=== PATIENT | female | born 1970 | race Caucasian/White ===

== ENCOUNTER 2016-10-23 06:37 | Inpatient (IN) ==
[2016-10-23] MEDS ORDERED: DUONEB NEB STA (06:39)
[2016-10-23] MEDS ORDERED: SOLU-MEDROL 125 MG IVP STA ×2 (06:39→09:30)
--- NOTE | 2016-10-23 06:42 | ED.PDOC ---
General <AZAEL CHRISTY JR - Last Filed: 10/23/16 10:55> Stated Complaint: Patient reports shortness of breath for 3 days. Has had fever at home. Time Seen by Physician: 06:41 Mode of Arrival: Walk-In Exam Limitations: Clinical condition Nursing and Triage Documentation Reviewed and Agree: Yes <AJITH CROOKS - Last Filed: 10/24/16 19:39> ED Provider: Dr. AJITH CROOKS (AZAEL CHRISTY JR) (AJITH CROOKS) Chief Complaint: Shortness of Air Primary Care Provider: (AZAEL CHRISTY JR) Review of Systems - Review Of Systems Constitutional: Reports: Fever Eyes: Reports: No symptoms Ears, Nose, Mouth, Throat: Reports: No symptoms Respiratory: Reports: Cough, Short of air Cardiac: Reports: No symptoms GI: Reports: No symptoms : Reports: No symptoms Musculoskeletal: Reports: No symptoms Skin: Reports: No symptoms Neurological: Reports: Anxiety Endocrine: Reports: No symptoms Hematologic/Lymphatic: Reports: No symptoms All Other Systems: Reviewed and Negative <AJITH CROOKS - Last Filed: 10/24/16 19:39> Past Medical History - Past Medical History Endocrine: Reports: None Cardiovascular: Reports: None Respiratory: Reports: None Hematological: Reports: None Gastrointestinal: Reports: None Genitourinary: Reports: None Neuro/Psych: Reports: None Musculoskeletal: Reports: None Cancer: Reports: None - Surgical History General Surgical History: Reports: Orthopedic (c-sect x2, rt shoulder surg,) - Family History Family History: Reports: None - Social History Smoking Status: Current every day smoker Hx Substance Use: No <AJITH CROOKS - Last Filed: 10/24/16 19:39> Physical Exam - Physical Exam Appearance: Ill-appearing Ill-appearing: Severe Respiratory: Rhonchi, Wheezes Cardiovascular: Tachycardia GI/: Soft, Nontender, No masses, Bowel sounds normal, No Organomegaly Musculoskeletal: Normal strength, ROM intact, No edema, No calf tenderness Skin: Warm, Dry Neurological: Sensation intact Psychiatric: Anxious <AJITH CROOKS - Last Filed: 10/24/16 19:39> Re-Evaluation - Re-Evaluation Time of Re-Evaluation: 09:03 (xrays are back still chest wall pain off oxygen calling dr Garrett) Status: Improved <AZAEL CHRISTY JR - Last Filed: 10/23/16 10:55> Physician Notification - Case Discussed Physician Notified: [email or web address] Time of Notification: 09:22 (admit) <AZAEL CHRISTY JR - Last Filed: 10/23/16 10:55> - Case Discussed Endorsed To/Discussed With: Dr Christy Time of Discussion: 06:56 <AJITH CROOKS - Last Filed: 10/24/16 19:39> Critical Care Note - Critical Care Note Total Time (mins): 30 <AJITH CROOKS - Last Filed: 10/24/16 19:39> Course - Course Hematology/Chemistry: 10/23/16 06:50 10/23/16 06:50 <AZAEL CHRISTY JR - Last Filed: 10/23/16 10:55> - Course Hematology/Chemistry: 10/24/16 05:15 10/24/16 05:15 <AJITH CROOKS - Last Filed: 10/24/16 19:39> - Course Orders, Labs, Meds: Lab Review 10/23/16 10/23/16 06:50 06:52 WBC 7.27 RBC 4.78 Hgb 15.1 Hct 41.8 MCV 87.4 MCH 31.6 H MCHC 36.1 H RDW Coeff of [place] 13.1 Plt Count 213 Immature Gran % (Auto) 0.3 Neut % (Auto) 85.0 Lymph % (Auto) 7.6 L [place] % (Auto) 6.6 Eos % (Auto) 0.4 Baso % (Auto) 0.1 Immature Gran # (Auto) 0.0 Neut # 6.2 Lymph # 0.6 [place] # 0.5 Eos # 0.0 Baso # 0.0 D-Dimer 0.21 Puncture Site R rad O2 Saturation 91.0 L ABG pH 7.42 ABG pCO2 42.0 ABG pO2 61.0 L ABG HCO3 27 H ABG Total CO2 28 ABG Base Excess 2 Cordell Test + FiO2 % 21.0 Sodium 139 Potassium 3.4 L Chloride 102 Carbon Dioxide 24 Anion Gap 16.4 BUN 6 L Creatinine 0.71 Estimated GFR (MDRD) 88.00 BUN/Creatinine Ratio 8.45 Glucose 108 Calcium 9.4 Total Bilirubin 0.78 AST 23 ALT 22 Alkaline Phosphatase 102 H Total Creatine Kinase 145 CK-MB (CK-2) 1.6 CK-MB (CK-2) % 1.80392 Troponin I 0.0100 B-Natriuretic Peptide 34 Total Protein 7.7 Albumin 4.0 Globulin 3.7 Albumin/Globulin Ratio 1.08 Orders Category Date Time Status ADMIT PATIENT INPATIENT .TO [facility] (MONITORED BED) ADMISSION 10/23/16 09: 26 Active ABG DRAW REQUEST Stat CARDIO 10/23/16 06:52 Completed EKG-(ED ONLY) Stat CARDIO 10/23/16 06:39 Completed EKG-(IP & OP ONLY) DAILY CARDIO 10/24/16 06:00 Completed EKG-(IP & OP ONLY) DAILY CARDIO 10/25/16 06:00 Ordered EKG-(IP & OP ONLY) DAILY CARDIO 10/26/16 06:00 Ordered NEBULIZER TREATMENT Routine CARDIO 10/23/16 09:35 Completed NEBULIZER TREATMENT Stat CARDIO 10/23/16 06:39 Completed NEBULIZER TREATMENT Stat CARDIO 10/23/16 09:22 Completed OXYGEN Routine CARDIO 10/23/16 09:28 Active ACTIVITY .Early Mobilization for VTE Prevention CARE 10/23/16 09:26 Completed ACTIVITY .Up ad [place] CARE 10/23/16 09:26 Active INTAKE & OUTPUT Q8HR CARE 10/23/16 09:26 Active TELEMETRY MONITORING TELE CARE 10/23/16 09:27 Active VITAL SIGNS Q4HR CARE 10/23/16 09:26 Active CARDIAC DIET DIETARY 10/23/16 Lunch Ordered ED APPLY O2 2-4XD EMERGENCY 10/23/16 06:40 Active ED IV/MEDIPORT/POWERPORT .ONCE EMERGENCY 10/23/16 06:40 Active ABG Stat LAB 10/23/16 06:52 Completed B-TYPE NATRIURETIC PEPTIDE Stat LAB 10/23/16 06:50 Completed BLOOD CULTURE Stat LAB 10/23/16 06:50 Results CBC W/ AUTO DIFF DAILY@0600 LAB 10/24/16 05:15 Completed CBC W/ AUTO DIFF DAILY@0600 LAB 10/25/16 06:00 Ordered CBC W/ AUTO DIFF DAILY@0600 LAB 10/26/16 06:00 Ordered CBC W/ AUTO DIFF DAILY@0600 LAB 10/27/16 06:00 Ordered CBC W/ AUTO DIFF DAILY@0600 LAB 10/28/16 06:00 Ordered CBC W/ AUTO DIFF DAILY@0600 LAB 10/29/16 06:00 Ordered CBC W/ AUTO DIFF DAILY@0600 LAB 10/30/16 06:00 Ordered CBC W/ AUTO DIFF DAILY@0600 LAB 10/31/16 06:00 Ordered CBC W/ AUTO DIFF DAILY@0600 LAB 11/01/16 06:00 Ordered CBC W/ AUTO DIFF DAILY@0600 LAB 11/02/16 06:00 Ordered CBC W/ AUTO DIFF DAILY@0600 LAB 11/03/16 06:00 Ordered CBC W/ AUTO DIFF DAILY@0600 LAB 11/04/16 06:00 Ordered CBC W/ AUTO DIFF DAILY@0600 LAB 11/05/16 06:00 Ordered CBC W/ AUTO DIFF DAILY@0600 LAB 11/06/16 06:00 Ordered CBC W/ AUTO DIFF DAILY@0600 LAB 11/07/16 06:00 Ordered CBC W/ AUTO DIFF DAILY@0600 LAB 11/08/16 06:00 Ordered CBC W/ AUTO DIFF DAILY@0600 LAB 11/09/16 06:00 Ordered CBC W/ AUTO DIFF DAILY@0600 LAB 11/10/16 06:00 Ordered CBC W/ AUTO DIFF DAILY@0600 LAB 11/11/16 06:00 Ordered CBC W/ AUTO DIFF DAILY@0600 LAB 11/12/16 06:00 Ordered CBC W/ AUTO DIFF Stat LAB 10/23/16 06:50 Completed COMPREHENSIVE METABOLIC PANEL DAILY@0600 LAB 10/24/16 05:15 Completed COMPREHENSIVE METABOLIC PANEL DAILY@0600 LAB 10/25/16 06:00 Ordered COMPREHENSIVE METABOLIC PANEL DAILY@0600 LAB 10/26/16 06:00 Ordered COMPREHENSIVE METABOLIC PANEL DAILY@0600 LAB 10/27/16 06:00 Ordered COMPREHENSIVE METABOLIC PANEL DAILY@0600 LAB 10/28/16 06:00 Ordered COMPREHENSIVE METABOLIC PANEL DAILY@0600 LAB 10/29/16 06:00 Ordered COMPREHENSIVE METABOLIC PANEL DAILY@0600 LAB 10/30/16 06:00 Ordered COMPREHENSIVE METABOLIC PANEL DAILY@0600 LAB 10/31/16 06:00 Ordered COMPREHENSIVE METABOLIC PANEL DAILY@0600 LAB 11/01/16 06:00 Ordered COMPREHENSIVE METABOLIC PANEL DAILY@0600 LAB 11/02/16 06:00 Ordered COMPREHENSIVE METABOLIC PANEL DAILY@0600 LAB 11/03/16 06:00 Ordered COMPREHENSIVE METABOLIC PANEL DAILY@0600 LAB 11/04/16 06:00 Ordered COMPREHENSIVE METABOLIC PANEL DAILY@0600 LAB 11/05/16 06:00 Ordered COMPREHENSIVE METABOLIC PANEL DAILY@0600 LAB 11/06/16 06:00 Ordered COMPREHENSIVE METABOLIC PANEL DAILY@0600 LAB 11/07/16 06:00 Ordered COMPREHENSIVE METABOLIC PANEL DAILY@0600 LAB 11/08/16 06:00 Ordered COMPREHENSIVE METABOLIC PANEL DAILY@0600 LAB 11/09/16 06:00 Ordered COMPREHENSIVE METABOLIC PANEL DAILY@0600 LAB 11/10/16 06:00 Ordered COMPREHENSIVE METABOLIC PANEL DAILY@0600 LAB 11/11/16 06:00 Ordered COMPREHENSIVE METABOLIC PANEL DAILY@0600 LAB 11/12/16 06:00 Ordered COMPREHENSIVE METABOLIC PANEL Stat LAB 10/23/16 06:50 Completed CREATINE KINASE Q8H LAB 10/23/16 15:05 Completed CREATINE KINASE Q8H LAB 10/23/16 22:59 Completed CREATINE KINASE Stat LAB 10/23/16 06:50 Completed D-DIMER Stat LAB 10/23/16 06:50 Completed SPUTUM CULTURE Stat LAB 10/23/16 09:10 Results TROPONIN I Q8H LAB 10/23/16 15:05 Completed TROPONIN I Q8H LAB 10/23/16 22:59 Completed TROPONIN I Stat LAB 10/23/16 06:50 Completed 0.9 % Sodium Chloride [Saline Flush] MEDS 10/23/16 06:40 Discontinued 1 syr IVF PRN PRN Albuterol Sulfate 0.083% Neb [Albuterol 0.083% Neb] MEDS 10/23/16 09:22 Discontinued 1 vial NEB ONCE STA Azithromycin Inj [Zithromax] 500 mg MEDS 10/23/16 09:30 Active 0.9 % Sodium Chloride [Sodium Chloride] 250 ml IV DAILY Ceftriaxone Sodium [Rocephin] 1 gm MEDS 10/24/16 09:00 Discontinued 0.9 % Sodium Chloride [Sodium Chloride] 50 ml IV DAILY Enoxaparin Sodium [Lovenox] MEDS 10/24/16 09:00 Active 40 mg SUBCUT DAILY Hydrocodone/Chlorphen Polis [Tussionex] MEDS 10/23/16 07:26 Discontinued 5 ml PO ONCE STA Ipratropium/Albuterol Neb [Duoneb] MEDS 10/23/16 06:39 Discontinued 1 vial NEB ONCE STA Ipratropium/Albuterol Neb [Duoneb] MEDS 10/23/16 10:00 Discontinued 1 vial NEB RTQID Methylprednisolone Sod Succ/Pf [Solu-Medrol 125 mg] MEDS 10/23/16 06:39 Discontinued 125 mg IVP ONCE STA Methylprednisolone Sod Succ/Pf [Solu-Medrol 125 mg] MEDS 10/23/16 09:30 Discontinued 125 mg IVP ONCE STA Nicotine 14 mg [Nicoderm 14 mg] MEDS 10/24/16 09:00 Discontinued 1 patch TD DAILY Nicotine 14 mg [Nicoderm 14 mg] MEDS 10/23/16 09:30 Discontinued 1 patch TD ONCE STA RESUSCITATION STATUS Routine OTHERS 10/23/16 09:26 Ordered CHEST, 1V AP ONLY Stat RADS 10/23/16 06:39 Completed Medications Generic Name Dose Route Start Last Admin Trade Name Freq PRN Reason Stop Dose Admin Enoxaparin Sodium 40 mg 10/24/16 09:00 10/24/16 08:41 Lovenox SUBCUT 40 mg DAILY MICHELLE Administration Hydrocortisone Sodium Succinate 80 mg 10/23/16 21:00 10/24/16 13:38 Solu-Cortef 100 Mg IVP 80 mg Q8HR MICHELLE Administration Azithromycin 500 mg/ Sodium 250 mls @ 125 mls/hr 10/23/16 09:30 10/24/16 09: 57 Chloride IV 10/25/16 11:00 125 mls/hr DAILY MICHELLE Administration Ceftriaxone Sodium 1 gm/ 100 mls @ 100 mls/hr 10/24/16 09:00 10/24/16 08:43 Sodium Chloride IV 100 mls/hr DAILY MICHELLE Administration Levalbuterol HCl 1 vial 10/24/16 18:00 10/24/16 17:51 Xopenex 1.25 Mg NEB 1 vial RTQ6H MICHELLE Administration Sodium Chloride 1 syr 10/24/16 13:27 10/24/16 13:38 Saline Flush IVF 1 syr Q8HR PRN Administration To flush IV Discontinued Medications Generic Name Dose Route Start Last Admin Trade Name Freq PRN Reason Stop Dose Admin Albuterol Sulfate 1 vial 10/23/16 09:22 10/23/16 09:33 Albuterol 0.083% Neb NEB 10/23/16 09:23 1 vial ONCE STA Administration Albuterol/Ipratropium 1 vial 10/23/16 06:39 10/23/16 06:42 Duoneb NEB 10/23/16 06:40 1 vial ONCE STA Administration Albuterol/Ipratropium 1 vial 10/23/16 10:00 10/24/16 14:15 Duoneb NEB 1 vial RTQID MICHELLE Administration Alprazolam 0.5 mg 10/24/16 14:42 10/24/16 14:55 Xanax PO 10/24/16 14:43 0.5 mg ONCE STA Administration Chlorphenir/Hydrocodone Polistirex 5 ml 10/23/16 07:26 10/23/16 07:39 Tussionex PO 10/23/16 07:27 5 ml ONCE STA Administration Enoxaparin Sodium 40 mg 10/23/16 10:38 10/23/16 12:48 Lovenox SUBCUT 10/23/16 10:39 40 mg ONCE STA Administration Ceftriaxone Sodium 1 gm/ 50 mls @ 75 mls/hr 10/24/16 09:00 Sodium Chloride IV DAILY MICHELLE Azithromycin 500 mg/ Sodium 250 mls @ 125 mls/hr 10/23/16 10:36 10/23/16 12: 30 Chloride IV 10/23/16 12:35 Not Given ONCE STA Ceftriaxone Sodium 1 gm/ 50 mls @ 75 mls/hr 10/23/16 10:36 10/23/16 11:32 Sodium Chloride IV 10/23/16 11:15 75 mls/hr ONCE STA Administration Methylprednisolone Sodium Succinate 125 mg 10/23/16 06:39 10/23/16 07:30 Solu-Medrol 125 Mg IVP 10/23/16 06:40 125 mg ONCE STA Administration Methylprednisolone Sodium Succinate 125 mg 10/23/16 09:30 10/23/16 10:21 Solu-Medrol 125 Mg IVP 10/23/16 09:31 Not Given ONCE STA Nicotine 1 patch 10/23/16 09:30 10/23/16 09:53 Nicoderm 14 Mg TD 10/23/16 09:31 Not Given ONCE STA Nicotine 1 patch 10/24/16 09:00 Nicoderm 14 Mg TD DAILY MICHELLE Sodium Chloride 1 syr 10/23/16 06:40 10/24/16 05:12 Saline Flush IVF 1 syr PRN PRN Administration To flush IV (AZAEL CHRISTY JR) (AJITH CROOKS) Vital Signs: Temp Pulse Resp BP Pulse Ox 10/23/16 07:42 99.7 F H 10/23/16 06:37 99 F 119 H 26 H 141/105 H 91 L (AZAEL CHRISTY JR) Departure <AZAEL CHRISTY JR - Last Filed: 10/23/16 10:55> - Departure Time of Disposition: 22:20 Pt referred to PMD for follow-up: No Disposition Discussed With: Patient <AJITH CROOKS - Last Filed: 10/24/16 19:39> - Departure Disposition: ADMITTED INPATIENT Discharge Problem: COPD exacerbation Condition: Stable Allergies/Adverse Reactions: Allergies codeine Adverse Reaction (Verified 05/08/13 10:04) rofecoxib [From Vioxx] Adverse Reaction (Verified 05/08/13 10:04) Home Medications: Ambulatory Orders 1 [No Reported Medications] 05/08/13
[2016-10-23 06:45] VITALS: BMI 29.2
[2016-10-23 07:10] LABS: BASOPHILS % (AUTO) 0.1 % (0.0-3.0); EOSINOPHILS % (AUTO) 0.4 % (0.0-7.0); HEMATOCRIT 41.8 % (37.0-47.0); HEMOGLOBIN 15.1 g/dl (12.0-16.0); IMMATURE GRANULOCYTE % (AUTO) 0.3 % (0.0-5.0); LYMPHOCYTES # (AUTO) 0.6 K/uL (0.60-3.4); LYMPHOCYTES % (AUTO) 7.6 (10.0-50.0); MEAN CORPUSCULAR HEMOGLOBIN 31.6 pg (27.0-31.0); MEAN CORPUSCULAR HGB CONC 36.1 (31.8-35.4); MEAN CORPUSCULAR VOLUME 87.4 fl (81.0-99.0); MONOCYTES # (AUTO) 0.5 K/uL (0.4-2.0); MONOCYTES % (AUTO) 6.6 (0-10); NEUTROPHILS # (AUTO) 6.2 K/ul (2.0-6.9); PLATELET COUNT 213 10^3/uL (140-440); RED BLOOD COUNT 4.78 10^6/ul (4.20-5.40); WHITE BLOOD COUNT 7.27 K/ul (4.6-10.2)
[2016-10-23] MEDS ORDERED: TUSSIONEX PO STA (07:26)
[2016-10-23 07:43] LABS: ALBUMIN/GLOBULIN RATIO 1.08; ANION GAP 16.4; BILIRUBIN,TOTAL 0.78 mg/dL (0.00-1.20); BUN/CREATININE RATIO 8.45; CALCIUM 9.4 mg/dL (8.2-10.2); CREATININE 0.71 mg/dL (0.60-1.30); POTASSIUM 3.4 mmol/L (3.5-5.10); TOTAL PROTEIN 7.7 g/dL (6.4-8.2); TROPONIN I 0.01 ng/ml (0.0000-0.4000)
[2016-10-23 08:23] LABS: CREATINE KINASE MB 1.6 ng/ml (0.0-3.6)
[2016-10-23 08:48] LABS: ABG BASE EXCESS 2 (-2.0-2.0); ABG HCO3 27 (22.0-26.0); ABG PH 7.42 (7.35-7.45); ABG TCO2 28 (22.0-28.0)
--- NOTE | 2016-10-23 08:56 | DI ---
EXAM: Single AP view of the chest HISTORY: Dyspnea. COMPARISON: Chest x-ray 01/20/2013 FINDINGS: Cardiomediastinal silhouette is normal. There is no pneumothorax or pleural effusion. Th ere is no consolidation, nodule or mass. The osseous structures are unremarkable. IMPRESSION: No acute cardiopulmonary process.
[2016-10-23] MEDS ORDERED: ALBUTEROL 0.083% NEB NEB STA (09:22)
[2016-10-23] MEDS ORDERED: NICODERM 14 MG TD STA (09:30)
[2016-10-23] MEDS: DUONEB NEB SCH ×3 (10:11→21:06)
[2016-10-23] MEDS ORDERED: ROCEPHIN 1 GM in SODIUM CHLORIDE 50 ML IV STA (10:36)
[2016-10-23] MEDS ORDERED: ZITHROMAX 500 MG in SODIUM CHLORIDE 250 ML IV STA (10:36)
[2016-10-23] MEDS ORDERED: LOVENOX SUBCUT STA (10:38)
[2016-10-23] MEDS: ZITHROMAX 500 MG in SODIUM CHLORIDE 250 ML IV SCH (12:14)
[2016-10-23 15:45] LABS: CREATINE KINASE 99 U/L
[2016-10-23] MEDS ORDERED: MUCINEX ONE (20:08)
[2016-10-23] MEDS: SOLU-CORTEF 100 MG IVP SCH (21:25)
[2016-10-23 23:29] LABS: CREATINE KINASE 77 U/L
[2016-10-24] MEDS: DUONEB NEB SCH ×3 (04:48→14:15)
[2016-10-24] MEDS: SOLU-CORTEF 100 MG IVP SCH ×3 (05:12→21:31)
[2016-10-24 05:20] LABS: HEMATOCRIT 38.7 % (37.0-47.0); HEMOGLOBIN 13.3 g/dl (12.0-16.0); IMMATURE GRANULOCYTE % (AUTO) 0.4 % (0.0-5.0); LYMPHOCYTES # (AUTO) 0.7 K/uL (0.60-3.4); LYMPHOCYTES % (AUTO) 13.4 (10.0-50.0); MEAN CORPUSCULAR HGB CONC 34.4 (31.8-35.4); MEAN CORPUSCULAR VOLUME 90.2 fl (81.0-99.0); MONOCYTES # (AUTO) 0.5 K/uL (0.4-2.0); MONOCYTES % (AUTO) 8.8 (0-10); NEUTROPHILS # (AUTO) 4.2 K/ul (2.0-6.9); NEUTROPHILS % (AUTO) 77.4; PLATELET COUNT 197 10^3/uL (140-440); RED BLOOD COUNT 4.29 10^6/ul (4.20-5.40); WHITE BLOOD COUNT 5.45 K/ul (4.6-10.2)
[2016-10-24 05:48] LABS: ALBUMIN 3.3 g/dL (3.4-5.0); ANION GAP 11.5; BILIRUBIN,TOTAL 0.32 mg/dL (0.00-1.20); BUN/CREATININE RATIO 15.71; CALCIUM 8.9 mg/dL (8.2-10.2); CREATININE 0.7 mg/dL (0.60-1.30); POTASSIUM 3.5 mmol/L (3.5-5.10); TOTAL PROTEIN 6.6 g/dL (6.4-8.2)
[2016-10-24] MEDS: LOVENOX SUBCUT SCH (08:41)
[2016-10-24] MEDS: ROCEPHIN 1 GM in SODIUM CHLORIDE 100 ML IV SCH (08:43)
--- NOTE | 2016-10-24 08:56 | HP ---
DATE OF SERVICE: 10/23/16 REASON FOR HOSPITALIZATION: Coughing and shortness of breath HISTORY OF PRESENT ILLNESS: The patient is a 46 year old female with history of COPD and smoking history. She started coughing almost a couple of weeks ago and gradually getting worse and from last two to three days the cough is so severe she has not been able to breath, getting a lot of phlegm. Today morning she cough and choked and not able to breath she came to the emergency room and been having fever, chills and chest pain. No nausea, vomiting or diarrhea no other complaints. The patient was seen Dr. ritchie in the emergency room, potassium was 3.4 and ABG's were done which showed the pH 7.42, pCO2 42.0, pO2 61. The chest X-ray was showing no acute process. Dr. Ritchie has given a dose of Solu-Medrol and breathing treatment. Rocephin was given but the patient was still in mild respiratory distress and at that time the patient is admitted to the hospital for the COPD exacerbation and bronchitis treatment with the IV steroids, antibiotics and the breathing treatments. REVIEW OF SYSTEMS: CONSTITUTIONAL: No night sweats. Weakness, tiredness. No fever or chills. HEENT: Eyes: No visual changes. No eye pain. No eye discharge. ENT: No runny nose. No epistaxis. No sinus pain. No sore throat. No odynophagia. No ear pain. No congestion. RESPIRATORY: Cough and congestion. No hemoptysis. CARDIOVASCULAR: No angina symptoms. No CHF symptoms. No atypical chest pain for CAD. No palpitations. Shortness of breath. GASTROINTESTINAL: No abdominal pain. No nausea or vomiting. No diarrhea or constipation. No hematemesis. No hematochezia. GENITOURINARY: No urgency. No frequency. No dysuria. No hematuria. No obstructive symptoms. No discharge. No pain. No significant abnormal bleeding. MUSCULOSKELETAL: No musculoskeletal pain. No joint swelling. No arthritis. Some aches and pain. NEUROLOGICAL: No headache. No neck pain. No syncope. No seizures. No dizziness. PSYCHIATRIC: Not anxious. No depression. No suicidal thoughts. No homicidal thoughts. SKIN: No rash. No lesions. No wounds. ENDOCRINE: No unexplained weight loss. No weight gain. HEMATOLOGIC/LYMPHATIC: No anemia. No purpura. No petechiae. No prolonged or excessive bleeding. No palpable lymph nodes. PERSONAL/FAMILY/SOCIAL HISTORY: The patient does smoke, 1/2 pack a day, Alcohol occasionally. Family history is significant for the Diabetes and Coronary artery disease. PAST MEDICAL/SURGICAL PROBLEMS: COPD Coughing Continued Nicotine use Alcohol use occasionally Tubal ligation Tonsillectomy Surgery on the face for the basal cell carcinoma MEDICATIONS: None ALLERGIES: Codeine Rofecoxib PHYSICAL EXAMINATION: GENERAL: The patient is a sick looking later lying in the bed, not in any distress. VITAL SIGNS: Blood pressure 141/105, respiratory 26, saturation 91% on the room air, heart rate 119 and temperature 99%. HEENT: Head normocephalic, atraumatic. Eyes: Extraocular muscles are intact. Pupils are equal, round and reactive to light and accommodation. Ears: No lesions. Nose appeared normal. Throat: No exudate or erythema. Mucosa dry. Pallor positive. NECK: Supple. No JVD, no carotid bruit. No lymphadenopathy or thyromegaly. LUNGS: Decreased and basilar crackles, defused wheezing and decreased air entry. Percussion note normal. Chest symmetrical. HEART: S1, S2, no S3. No murmurs. No cyanosis or clubbing. No ascites. Pulses: Dorsalis pedis and posterior tibial pulses +1 to +2 both sides. ABDOMEN: Soft. Nontender. Bowel sounds active. No CVA tenderness. No mass felt. EXTREMITIES: No edema. Full range of motion of all extremities, equal. NEUROLOGIC: No focal deficit. Cranial nerves II through XII are grossly intact. No headache, no double vision or headache. SKIN: Not dry. Intact. Turgor - normal. LYMPHATIC: No palpable lymph nodes/no lymphedema. MUSCULOSKELETAL: Normal joints with no swelling. Muscle tone is normal. LABS: WBC 7.27, hgb 15.1, hct 41.8, plt count 213, D-dimer 0.21, ABG pH 7.42, pCO2 42.0, pO2 61, sodium is 139, potassium 3.4, chloride 102, bicarb 24, BUN 6 and creatinine 0.71. First set of cardiac enzymes are negative, BNP is 234, D-dimer is 0.21 ASSESSMENT: 1. COPD exacerbation secondary to bronchitis 2. Hypoxemia secondary to the COPD 3. Hypertension 4. Nicotine use PLAN: 1. Admit patient to the regular floor 2. CBC and CMP today and daily 3. Cardiac enzymes and Troponin 4. 2 liters nasal cannula 5. IV fluids 6. Rocephin 1 gram daily 7. Azithromycin 500mg daily 8. DUO NEBS Q 4 to 6 hours 9. Solu-Medrol 80 Q 8 hours 10.Lovenox for the DVT prophylaxis 11.Daily I&O's Will follow the patient in daily rounds. TIME SPENT: More than 65 minutes. MTDD
[2016-10-24] MEDS ORDERED: NICODERM 14 MG TD SCH (09:00)
[2016-10-24] MEDS ORDERED: ROCEPHIN 1 GM in SODIUM CHLORIDE 50 ML IV SCH (09:00)
[2016-10-24] MEDS: ZITHROMAX 500 MG in SODIUM CHLORIDE 250 ML IV SCH (09:57)
[2016-10-24] MEDS ORDERED: XANAX PO STA (14:42)
[2016-10-24] MEDS: XOPENEX 1.25 MG NEB SCH ×2 (17:51→23:22)
[2016-10-25] MEDS: TYLENOL PO PRN (01:55)
[2016-10-25] MEDS: SOLU-CORTEF 100 MG IVP SCH ×3 (05:24→21:21)
[2016-10-25] MEDS: XOPENEX 1.25 MG NEB SCH ×4 (05:35→22:42)
[2016-10-25 05:41] LABS: HEMATOCRIT 35.8 % (37.0-47.0); HEMOGLOBIN 12.1 g/dl (12.0-16.0); IMMATURE GRANULOCYTE % (AUTO) 0.2 % (0.0-5.0); LYMPHOCYTES % (AUTO) 17.4 (10.0-50.0); MEAN CORPUSCULAR HEMOGLOBIN 30.9 pg (27.0-31.0); MEAN CORPUSCULAR HGB CONC 33.8 (31.8-35.4); MEAN CORPUSCULAR VOLUME 91.3 fl (81.0-99.0); MONOCYTES # (AUTO) 0.3 K/uL (0.4-2.0); MONOCYTES % (AUTO) 5.1 (0-10); NEUTROPHILS # (AUTO) 4.4 K/ul (2.0-6.9); NEUTROPHILS % (AUTO) 77.3; PLATELET COUNT 178 10^3/uL (140-440); RED BLOOD COUNT 3.92 10^6/ul (4.20-5.40); WHITE BLOOD COUNT 5.69 K/ul (4.6-10.2)
[2016-10-25 06:05] LABS: ALBUMIN 3.1 g/dL (3.4-5.0); ALBUMIN/GLOBULIN RATIO 1.03; ANION GAP 12.1; BILIRUBIN,TOTAL 0.18 mg/dL (0.00-1.20); BUN/CREATININE RATIO 19.04; CALCIUM 8.6 mg/dL (8.2-10.2); CREATININE 0.63 mg/dL (0.60-1.30); POTASSIUM 3.1 mmol/L (3.5-5.10); TOTAL PROTEIN 6.1 g/dL (6.4-8.2)
[2016-10-25] MEDS ORDERED: K-DUR PO STA (08:49)
[2016-10-25] MEDS: ROCEPHIN 1 GM in SODIUM CHLORIDE 100 ML IV SCH (09:35)
[2016-10-25] MEDS: LOVENOX SUBCUT SCH (09:36)
[2016-10-25] MEDS: ZITHROMAX 500 MG in SODIUM CHLORIDE 250 ML IV SCH (10:39)
[2016-10-26] MEDS: TYLENOL PO PRN (03:34)
[2016-10-26] MEDS: SOLU-CORTEF 100 MG IVP SCH (04:41)
[2016-10-26] MEDS: XOPENEX 1.25 MG NEB SCH (05:00)
[2016-10-26 06:06] LABS: BASOPHILS % (AUTO) 0.2 % (0.0-3.0); HEMATOCRIT 35.4 % (37.0-47.0); IMMATURE GRANULOCYTE % (AUTO) 0.7 % (0.0-5.0); LYMPHOCYTES # (AUTO) 1.2 K/uL (0.60-3.4); LYMPHOCYTES % (AUTO) 20.6 (10.0-50.0); MEAN CORPUSCULAR HEMOGLOBIN 31.2 pg (27.0-31.0); MEAN CORPUSCULAR HGB CONC 33.9 (31.8-35.4); MEAN CORPUSCULAR VOLUME 91.9 fl (81.0-99.0); MONOCYTES # (AUTO) 0.3 K/uL (0.4-2.0); MONOCYTES % (AUTO) 5.6 (0-10); NEUTROPHILS # (AUTO) 4.2 K/ul (2.0-6.9); NEUTROPHILS % (AUTO) 72.9; PLATELET COUNT 194 10^3/uL (140-440); RED BLOOD COUNT 3.85 10^6/ul (4.20-5.40); WHITE BLOOD COUNT 5.74 K/ul (4.6-10.2)
[2016-10-26 06:11] VITALS: BP 150/85; TEMP 97.9
[2016-10-26 06:28] LABS: ALBUMIN 3.2 g/dL (3.4-5.0); ALBUMIN/GLOBULIN RATIO 1.1; ANION GAP 11.4; BILIRUBIN,TOTAL 0.21 mg/dL (0.00-1.20); BUN/CREATININE RATIO 17.39; CALCIUM 8.8 mg/dL (8.2-10.2); CREATININE 0.69 mg/dL (0.60-1.30); POTASSIUM 3.4 mmol/L (3.5-5.10); TOTAL PROTEIN 6.1 g/dL (6.4-8.2)
[2016-10-26] MEDS ORDERED: MEDROL DOSEPAK PO SCH (09:00)
[2016-10-26] MEDS: ROCEPHIN 1 GM in SODIUM CHLORIDE 100 ML IV SCH (09:17)
[2016-10-26] MEDS: LOVENOX SUBCUT SCH (09:18)
--- NOTE | 2016-11-28 11:53 | PN ---
DATE OF SERVICE: 10/24/16 SUBJECTIVE: The patient was admitted with COPD exacerbation and bronchitis. She has history of basal cell carcinoma of the face. She is still coughing and still wheezing. REVIEW OF SYSTEMS: CONSTITUTIONAL: No fever, no chills. HEENT: Normal. ENDOCRINE: No weight gain, no weight loss. CVS: No angina symptoms. No CHF symptoms. No palpitations. No atypical chest pain for CAD. No shortness of breath. No PND, no orthopnea. RESPIRATORY: Cough, wheezing. No hemoptysis. GI: No nausea, no vomiting. No abdominal pain. : No hematuria. No polyuria. MUSCULOSKELETAL:. No joint swelling. PSYCHIATRIC: Not anxious. No depression. No suicidal thoughts. No homicidal thoughts. SKIN: Intact. No rash. PHYSICAL EXAMINATION: V/S: Blood pressure 125/81, respiratory rate 20, heart rate is 90, temperature 97.5, saturation 97 on room air. HEENT: Normocephalic, atraumatic. Ears, eyes, nose and throat normal. NECK: Supple. No JVD, no carotid bruit. No lymphadenopathy. LUNGS: Decreased air entry in both lungs with wheezing and basilar crackles. No rales or rhonchi. HEART: S1, S2 normal. No S3. No murmur, gallop or regurgitation. ABDOMEN: Soft, nontender. Bowel sounds active. No rigidity. No rebound or guarding. No CVA tenderness. EXTREMITIES: No clubbing, cyanosis or pedal edema. MUSCULOSKELETAL: No joint swelling. NEUROLOGIC: Awake, alert, oriented times three. No focal deficit. LYMPHATIC: No lymph nodes palpable. SKIN: Intact. LABS: White count is 5.45, hemoglobin 13.3, hematocrit 38.7, platelet count is 197, sodium 140, potassium 3.5, chloride 103, bicarb 29, BUN 11, creatinine 0.70 , glucose 115. ASSESSMENT: 1. COPE EXACERBATION SECONDARY TO BRONCHITIS 2. HISTORY OF BASAL CELL CARCINOMA 3. HISTORY OF ALCOHOL USE 4. TONSILLECTOMY 5. TUBAL LIGATION PLAN: 1. Continue the DuoNebs, Lovenox, SoluMedrol, Rocephin, Zithromycin. 2. Daily I and O's. TIME SPENT: More than 30 minutes MTDD
--- NOTE | 2016-11-28 12:01 | PN ---
DATE OF SERVICE: 10/25/16 SUBJECTIVE: This patient was admitted with COPD exacerbation, bronchitis. She is feeling some better. No fever. Green colored mucus is still coming. Saturation is 94. REVIEW OF SYSTEMS: CONSTITUTIONAL: No fever, no chills. HEENT: Normal. ENDOCRINE: No weight gain, no weight loss. CVS: No angina symptoms. No CHF symptoms. No palpitations. No atypical chest pain for CAD. No shortness of breath. No PND, no orthopnea. RESPIRATORY: Coughing green colored mucus, no hemoptysis. GI: No nausea, no vomiting. No abdominal pain. : No hematuria. No polyuria. MUSCULOSKELETAL:. No joint swelling. PSYCHIATRIC: Not anxious. No depression. No suicidal thoughts. No homicidal thoughts. SKIN: Intact. No rash. PHYSICAL EXAMINATION: V/S: Blood pressure 139/80, respiratory rate 18, heart rate 81, temperature 97.3 , saturation is 99. HEENT: Normocephalic, atraumatic. Ears, eyes, nose and throat normal. NECK: Supple. No JVD, no carotid bruit. No lymphadenopathy. LUNGS: Decreased air entry and some basilar crackles and mild wheezing is present. No rales or rhonchi. HEART: S1, S2 normal. No S3. No murmur, gallop or regurgitation. ABDOMEN: Soft, nontender. Bowel sounds active. No rigidity. No rebound or guarding. No CVA tenderness. EXTREMITIES: No clubbing, cyanosis or pedal edema. MUSCULOSKELETAL: No joint swelling. NEUROLOGIC: Awake, alert, oriented times three. No focal deficit. LYMPHATIC: No lymph nodes palpable. SKIN: Intact. LABS: White count is 5.69, hemoglobin 12.1, hematocrit 35.8, platelet count is 178, sodium 140, potassium 3.1, chloride 102, bicarb 28, BUN 12, creatinine 0.63 , glucose 140. ASSESSMENT: 1. HYPOKALEMIA 2. CHRONIC OBSTRUCTIVE PULMONARY DISEASE EXACERBATION SECONDARY TO BRONCHITIS 3. HISTORY OF BASAL CELL CARCINOMA 4. TOBACCO USE PLAN: 1. Replace the potassium. 2. Continue with DuoNebs and Rocephin and SoluMedrol. 3. I & O's. 4. Will follow up with the patient in daily rounds. TIME SPENT: More than 30 minutes MTDD
--- NOTE | 2016-11-28 14:16 | DS ---
DATE OF SERVICE: 10/26/2016 FINAL DIAGNOSIS: 1. CHRONIC OBSTRUCTIVE PULMONARY DISEASE EXACERBATION SECONDARY TO THE BRONCHITIS 2. HYPOXEMIA SECONDARY TO THE COPD EXACERBATION 3. HYPOKALEMIA, WHICH IS RESOLVED 4. HISTORY OF TONSILLECTOMY 5. HISTORY OF TUBAL LIGATION 6. NICOTINE USE PLAN: 1. Discharge the patient home. 2. Start Keflex 500 mg one tablet twice a day for five days. 3. ProAir inhaler. 4. Take the Medrol Dose Pack and please finish it. 5. Stop smoking. Offered her help, but she did not want to take it. She wanted to quit smoking by herself. 6. Exercise-walking three to four times a week. 7. No home medications at this given time. 8. Diet: Cardiac and healthy. 9. Activity: As much as tolerated. DISEASE SPECIFIC EDUCATION: About the COPD and the risk of pneumonia, as well as smoking and the risk of lung cancer was discussed and she verbalized understanding. HOSPITAL COURSE: Ashley Carlton who was recently admitted to the hospital came back again with worsening of the cough and then congestion and COPD exacerbation. Initially, hypoxic with ABG with pH of 7.42, PCO2 42.0, PO2 of 61. The patient is started on the Rocephin, Zithromycin and SoluMedrol. With the given treatment, the patient started feeling better and her potassium was down to 3.1, which was replaced and came up to 3.4. Three sets of cardiac enzymes were negative. She did not have any abnormal course of the hospital stay. As the patient was doing find and feeling better and less short of breath and breathing is improving, she is being discharged to home. Time spent on the patient is more than 45 minutes today. VADIMD
== END 2016-10-26 10:20 | disposition home or self-care (01) | DRG 192 ==
LOC: ED 06:37 → MEDSURG A 09:55
PROVIDERS: ADMIT Emergency Medicine; ATTEND Emergency Medicine
DX: J44.0 Chronic obstructive pulmonary disease with (acute) lower respiratory infection (principal); J20.9 Acute bronchitis, unspecified; J44.1 Chronic obstructive pulmonary disease with (acute) exacerbation; E87.6 Hypokalemia; F17.200 Nicotine dependence, unspecified, uncomplicated
CPT/HCPCS: 36415; 80053; 82550; 82553; 82803; 83880; 84484; 85025; 85379; 87040; 87070; 93005; 93010; 94640; 96374; 99223; 99233; 99239; 99284

== ENCOUNTER 2016-11-13 13:37 | Inpatient (IN) ==
[2016-11-13 13:44] VITALS: BMI 29.7
[2016-11-13] MEDS ORDERED: DUONEB NEB STA (13:49)
[2016-11-13] MEDS ORDERED: DECADRON 4 MG/ML SDV IM STA (13:50)
--- NOTE | 2016-11-13 13:57 | ED.PDOC ---
General ED Provider: Dr. AZAEL CHRISTY JR Chief Complaint: Shortness of Air Stated Complaint: discharged from [facility] on 10/26/16 --dx copd eacerbation--seen at clinic every week since--resp still labored with auduble wheezes--using neb at home--soa is worse--stopped smoking one week ago[End]98.5 92 24 90% 151/105 01/23 Time Seen by Physician: 13:55 Mode of Arrival: Walk-In Information Source: Patient Exam Limitations: No limitations Primary Care Provider: JEFERSON [facility] Nursing and Triage Documentation Reviewed and Agree: No Review of Systems - Review Of Systems Constitutional: Reports: Weakness Eyes: Reports: No symptoms Ears, Nose, Mouth, Throat: Reports: No symptoms Respiratory: Reports: Cough, Short of air, Wheezing Cardiac: Reports: No symptoms GI: Reports: No symptoms : Reports: No symptoms Musculoskeletal: Reports: No symptoms Skin: Reports: No symptoms Neurological: Reports: Anxiety Endocrine: Reports: No symptoms Hematologic/Lymphatic: Reports: No symptoms All Other Systems: Other Past Medical History - Past Medical History Endocrine: Reports: None Cardiovascular: Reports: Hypertension Respiratory: Reports: COPD Hematological: Reports: None Gastrointestinal: Reports: None Genitourinary: Reports: None Neuro/Psych: Reports: Migraine, Depression Musculoskeletal: Reports: None Cancer: Reports: None Last Menstrual Period: 2 weeks ago - Surgical History General Surgical History: Reports: (x2), Appendectomy, Orthopedic ( r shoulder x2), Other (bladder elevation, left breast biopsy, ) - Family History Family History: Reports: None - Social History Smoking Status: Former smoker (one week- on welbutrin) Hx Substance Use: No Alcohol Screening: Occasionally Physical Exam - Physical Exam Appearance: Ill-appearing Ill-appearing: Moderate Pain Distress: Moderate Eyes: KATHRIN, EOMI, Conjunctiva clear ENT: Ears normal, Nose normal, Oropharynx normal Neck: Supple Respiratory: Airway patent, Breath sounds equal, Breath sounds diminished, Rhonchi, Wheezes Cardiovascular: RRR, Pulses normal, No rub, No murmur GI/: Soft, Nontender, No masses, Bowel sounds normal, No Organomegaly Musculoskeletal: Normal strength, ROM intact, No edema, No calf tenderness Skin: Warm, Dry, Normal color Neurological: Sensation intact, Motor intact, Reflexes intact, Cranial nerves intact, Alert, Oriented Psychiatric: Affect appropriate, Mood appropriate, Anxious Interpretation - Radiology Interpretation Radiology Interpretation By: Radiologist Radiology Results: Positive Exam Interpreted: CXR (reactive airway disease/bronchiolitis) - EKG Interpretation Time of EKG #1: 14:45 Rate: Normal Rhythm: Sinus ST Segment: Other (decr ant r waves no acute changes) Critical Care Note - Critical Care Note Total Time (mins): 20 Course - Course Hematology/Chemistry: 11/16/16 05:30 11/16/16 05:30 Orders, Labs, Meds: Lab Review 11/13/16 11/13/16 11/13/16 05:08 13:55 14:10 WBC RBC Hgb Hct MCV MCH MCHC RDW Coeff of Rico Plt Count Neutrophils % (Manual) Lymphocytes % (Manual) Monocytes % (Manual) D-Dimer Puncture Site R brach O2 Saturation 88.0 L ABG pH 7.40 ABG pCO2 48.0 H ABG pO2 55.0 L* ABG HCO3 30 H ABG Total CO2 31 H ABG Base Excess 5 H Cordell Test + FiO2 % 21.0 Sodium Potassium Chloride Carbon Dioxide Anion Gap BUN Creatinine Estimated GFR (MDRD) BUN/Creatinine Ratio Glucose Calcium Magnesium Total Bilirubin AST ALT Alkaline Phosphatase Total Creatine Kinase Troponin I B-Natriuretic Peptide Total Protein Albumin Globulin Albumin/Globulin Ratio Procalcitonin Urine Opiates Screen Negative Ur Oxycodone Screen Negative Urine Methadone Screen Negative Ur Propoxyphene Screen Negative Ur Barbiturates Screen Negative U Tricyclic Antidepress Negative Ur Phencyclidine Scrn Negative Ur Amphetamine Screen Negative U Methamphetamines Scrn Negative U Benzodiazepines Scrn Positive Urine Cocaine Screen Negative U Cannabinoids Screen Positive Influenza A (Rapid) Negative Influenza B (Rapid) Negative 11/13/16 14:35 WBC 5.00 RBC 4.45 Hgb 13.7 Hct 38.9 MCV 87.4 MCH 30.8 MCHC 35.2 RDW Coeff of Rico 12.4 Plt Count 264 Neutrophils % (Manual) 64.0 Lymphocytes % (Manual) 22.0 Monocytes % (Manual) 14.0 H D-Dimer 0.40 Puncture Site O2 Saturation ABG pH ABG pCO2 ABG pO2 ABG HCO3 ABG Total CO2 ABG Base Excess Cordell Test FiO2 % Sodium 139 Potassium 3.7 Chloride 101 Carbon Dioxide 28 Anion Gap 13.7 BUN 8 Creatinine 0.71 Estimated GFR (MDRD) 88.00 BUN/Creatinine Ratio 11.26 Glucose 88 Calcium 9.0 Magnesium 2.1 Total Bilirubin 0.34 AST 21 ALT 30 Alkaline Phosphatase 105 H Total Creatine Kinase 39 Troponin I < 0.0100 B-Natriuretic Peptide 33 Total Protein 7.2 Albumin 3.4 Globulin 3.8 Albumin/Globulin Ratio 0.89 Procalcitonin < 0.05 Urine Opiates Screen Ur Oxycodone Screen Urine Methadone Screen Ur Propoxyphene Screen Ur Barbiturates Screen U Tricyclic Antidepress Ur Phencyclidine Scrn Ur Amphetamine Screen U Methamphetamines Scrn U Benzodiazepines Scrn Urine Cocaine Screen U Cannabinoids Screen Influenza A (Rapid) Influenza B (Rapid) Orders Category Date Time Status ADMIT PATIENT INPATIENT .TO [facility] (MONITORED BED) ADMISSION 11/13/16 16: 38 Active ABG DRAW REQUEST Stat CARDIO 11/13/16 14:10 Completed EKG-(ED ONLY) Stat CARDIO 11/13/16 14:10 Completed EKG-(IP & OP ONLY) DAILY CARDIO 11/14/16 06:00 Completed EKG-(IP & OP ONLY) DAILY CARDIO 11/15/16 06:00 Completed EKG-(IP & OP ONLY) DAILY CARDIO 11/16/16 06:00 Completed NEBULIZER TREATMENT Routine CARDIO 11/13/16 16:44 Completed NEBULIZER TREATMENT Stat CARDIO 11/13/16 13:50 Completed NEBULIZER TREATMENT Stat CARDIO 11/13/16 16:30 Completed OXYGEN Routine CARDIO 11/13/16 16:40 Completed ACTIVITY .Early Mobilization for VTE Prevention CARE 11/13/16 16:38 Active INTAKE & OUTPUT Q8HR CARE 11/13/16 16:38 Completed TELEMETRY MONITORING TELE CARE 11/13/16 16:39 Completed VITAL SIGNS Q4HR CARE 11/13/16 16:38 Active REGULAR DIET DIETARY 11/13/16 Dinner Completed ED APPLY O2 .ONCE EMERGENCY 11/13/16 14:10 Active ED SUPERVISOR PROPELLANT CHARGE LOADING APPLIED .ONCE EMERGENCY 11/13/16 14:10 Active ED IV/MEDIPORT/POWERPORT .ONCE EMERGENCY 11/13/16 14:10 Active ABG Stat LAB 11/13/16 14:10 Completed B-TYPE NATRIURETIC PEPTIDE Stat LAB 11/13/16 14:35 Completed BLOOD CULTURE Stat LAB 11/13/16 14:35 Results CBC W/ AUTO DIFF DAILY@0600 LAB 11/14/16 06:50 Completed CBC W/ AUTO DIFF DAILY@0600 LAB 11/15/16 05:20 Completed CBC W/ AUTO DIFF DAILY@0600 LAB 11/16/16 05:30 Completed CBC W/ AUTO DIFF Stat LAB 11/13/16 14:35 Completed COMPREHENSIVE METABOLIC PANEL DAILY@0600 LAB 11/15/16 05:20 Completed COMPREHENSIVE METABOLIC PANEL DAILY@0600 LAB 11/16/16 05:30 Completed COMPREHENSIVE METABOLIC PANEL Stat LAB 11/13/16 14:35 Completed CREATINE KINASE Q8H LAB 11/13/16 22:00 Completed CREATINE KINASE Q8H LAB 11/14/16 06:50 Completed CREATINE KINASE Stat LAB 11/13/16 14:35 Completed D-DIMER Stat LAB 11/13/16 14:35 Completed MAGNESIUM Stat LAB 11/13/16 14:35 Completed MANUAL DIFFERENTIAL Stat LAB 11/13/16 14:35 Completed MOLECULAR GROUP A STREP Stat LAB 11/13/16 13:55 Completed PROCALCITONIN Stat LAB 11/13/16 14:35 Completed RAPID FLU A/B Stat LAB 11/13/16 13:55 Completed RBC MORPHOLOGY Stat LAB 11/13/16 14:35 Completed STREP SCREEN Stat LAB 11/13/16 13:55 Completed TROPONIN I Q8H LAB 11/13/16 22:00 Completed TROPONIN I Q8H LAB 11/14/16 06:50 Completed TROPONIN I Stat LAB 11/13/16 14:35 Completed 0.9 % Sodium Chloride [Saline Flush] MEDS 11/13/16 14:10 Discontinued 1 syr IVF PRN PRN Albuterol Sulfate 0.083% Neb [Albuterol 0.083% Neb] MEDS 11/13/16 16:30 Discontinued 1 vial NEB ONCE STA Budesonide/Formoterol Fumarate [Symbicort 160-4.5 Mcg MEDS 11/13/16 21:00 Discontinued Inhaler] 2 puff IH BID Bupropion HCl [Wellbutrin Sr] MEDS 11/14/16 09:00 Discontinued 150 mg PO DAILY Dexamethasone 4 mg/ml Inj [Decadron 4 mg/ml Sdv] MEDS 11/13/16 13:50 Discontinued 8 mg IM ONCE STA Ipratropium/Albuterol Neb [Duoneb] MEDS 11/13/16 13:49 Discontinued 1 vial NEB ONCE STA Ipratropium/Albuterol Neb [Duoneb] MEDS 11/13/16 18:00 Discontinued 1 vial NEB RTQ4H Magnesium Sulfate Vial [Magnesium Sulfate 1 gm/2 ml MEDS 11/13/16 14:09 Discontinued Vial] 1 gm IVP ONCE STA Metoprolol Tartrate [Lopressor] MEDS 11/14/16 09:00 Discontinued 25 mg PO DAILY Moxifloxacin in NaCl [Avelox] 400 mg MEDS 11/14/16 09:00 Discontinued Premix 250 ml 0.9% NaCl [Premix 250 ml Ns] 1 bag IV DAILY Moxifloxacin in NaCl [Avelox] 400 mg MEDS 11/13/16 14:24 Discontinued Premix 250 ml 0.9% NaCl [Premix 250 ml Ns] 1 bag IV ONCE Sodium Chloride 0.9% [Sodium Chloride] 1,000 ml MEDS 11/13/16 17:00 Discontinued IV 40 mls/hr RESUSCITATION STATUS Routine OTHERS 11/13/16 16:38 Ordered CHEST, 2 VIEWS PA & LAT Stat RADS 11/13/16 13:46 Completed Medications Discontinued Medications Generic Name Dose Route Start Last Admin Trade Name Freq PRN Reason Stop Dose Admin Albuterol Sulfate 1 vial 11/13/16 16:30 11/13/16 16:40 Albuterol 0.083% Neb NEB 11/13/16 16:31 1 vial ONCE STA Administration Albuterol/Ipratropium 1 vial 11/13/16 13:49 11/13/16 14:01 Duoneb NEB 11/13/16 13:50 1 vial ONCE STA Administration Albuterol/Ipratropium 1 vial 11/13/16 18:00 11/16/16 13:52 Duoneb NEB 1 vial RTQ4H MICHELLE Administration Budesonide/Formoterol Fumarate 2 puff 11/13/16 21:00 11/16/16 08:58 Symbicort 160-4.5 Mcg Inhaler IH 2 puff BID MICHELLE Administration Bupropion HCl 150 mg 11/14/16 09:00 11/16/16 08:59 Wellbutrin Sr PO 150 mg DAILY MICHELLE Administration Dexamethasone Sodium Phosphate 8 mg 11/13/16 13:50 11/13/16 14:10 Decadron 4 Mg/Ml Sdv IM 11/13/16 13:51 8 mg ONCE STA Administration Enoxaparin Sodium 40 mg 11/15/16 11:00 11/16/16 08:59 Lovenox SUBCUT 40 mg DAILY MICHELLE Administration Moxifloxacin HCl 400 mg/ 250 mls @ 125 mls/hr 11/13/16 14:24 11/13/16 14:38 Sodium Chloride IV 11/13/16 16:23 125 mls/hr ONCE STA Administration Sodium Chloride 1,000 mls @ 40 mls/hr 11/13/16 17:00 11/13/16 18:10 Sodium Chloride IV 40 mls/hr .Q25H MICHELLE Administration Moxifloxacin HCl 400 mg/ 250 mls @ 125 mls/hr 11/14/16 09:00 11/16/16 08:58 Sodium Chloride IV 125 mls/hr DAILY MICHELLE Administration Magnesium Sulfate 1 gm 11/13/16 14:09 11/13/16 17:02 Magnesium Sulfate 1 Gm/2 Ml Vial IVP 11/13/16 14:10 1 gm ONCE STA Administration Methylprednisolone Sodium Succinate 125 mg 11/13/16 21:00 11/16/16 08:58 Solu-Medrol 125 Mg IVP 125 mg Q12HR MICHELLE Administration Metoprolol Tartrate 25 mg 11/14/16 09:00 11/16/16 08:59 Lopressor PO 25 mg DAILY MICHELLE Administration Sodium Chloride 1 syr 11/13/16 14:10 11/14/16 21:31 Saline Flush IVF 1 syr PRN PRN Administration To flush IV Sodium Chloride 1 syr 11/14/16 21:00 11/16/16 05:28 Saline Flush IVF 1 syr Q8HR MICHELLE Administration Zolpidem Tartrate 5 mg 11/15/16 21:00 11/15/16 20:18 Ambien PO 5 mg BEDTIME MICHELLE Administration Vital Signs: Temp Pulse Resp BP Pulse Ox 11/13/16 13:38 98.5 F 92 H 24 151/105 H 90 L Departure - Departure Time of Disposition: 16:40 Disposition: ADMITTED INPATIENT Discharge Problem: COPD exacerbation Condition: Stable Pt referred to PMD for follow-up: No (hospitalist) Allergies/Adverse Reactions: Allergies varenicline tartrate [From Chantix] Allergy (Severe, Verified 11/13/16 13:45) nightmares Pt to notify drugstore codeine Adverse Reaction (Verified 11/13/16 13:45) rofecoxib [From Vioxx] Adverse Reaction (Verified 11/13/16 13:45) nicotene patch Allergy (Severe, Uncoded 11/01/16 08:19) nightmares Pt to notify drugstore Home Medications: Ambulatory Orders Ibuprofen 800 mg PO PRN 11/01/16 Dexamethasone 4 mg PO BID #8 tablet 11/16/16 Moxifloxacin HCl [Avelox] 400 mg PO DAILY #5 tablet 11/16/16
[2016-11-13] MEDS ORDERED: MAGNESIUM SULFATE 1 GM/2 ML VIAL IVP STA (14:09)
[2016-11-13 14:16] LABS: FLU INTERNAL QC INTERNAL QC VALID; RAPID FLU A NEGATIVE (NEGATIVE); RAPID FLU B NEGATIVE (NEGATIVE)
[2016-11-13] MEDS ORDERED: AVELOX 400 MG in PREMIX 250 ML NS 1 BAG IV STA (14:24)
[2016-11-13 14:30] LABS: ABG BASE EXCESS 5 (-2.0-2.0); ABG HCO3 30 (22.0-26.0); ABG TCO2 31 (22.0-28.0)
--- NOTE | 2016-11-13 14:44 | DI ---
EXAM: Chest two views HISTORY: Cough COMPARISON: 10/23/2016 TECHNIQUE: Two views of the chest were performed FINDINGS: There is lower airway bronchial wall thickening. There is no focal airspace consolidatio n. There is no pleural effusion or pneumothorax. The heart is normal in size. The mediastinal cont our is normal. There is no acute abnormality of the bones. IMPRESSION: Lower airway thickening may represent reactive airways disease or bronchiolitis. No fo abdiaziz airspace consolidation.
[2016-11-13 14:45] LABS: HEMATOCRIT 38.9 % (37.0-47.0); HEMOGLOBIN 13.7 g/dl (12.0-16.0); MEAN CORPUSCULAR HEMOGLOBIN 30.8 pg (27.0-31.0); MEAN CORPUSCULAR HGB CONC 35.2 (31.8-35.4); MEAN CORPUSCULAR VOLUME 87.4 fl (81.0-99.0); PLATELET COUNT 264 10^3/uL (140-440); RED BLOOD COUNT 4.45 10^6/ul (4.20-5.40)
[2016-11-13 15:02] LABS: ANISOCYTOSIS NOT PRESENT (NOT PRESENT)
[2016-11-13 15:13] LABS: ALANINE AMINOTRANSFERASE 30 U/L (12-78); ALBUMIN 3.4 g/dL (3.4-5.0); ALBUMIN/GLOBULIN RATIO 0.89; ALKALINE PHOSPHATASE 105 U/L (42-98); ANION GAP 13.7; ASPARTATE AMINO TRANSFERASE 21 U/L (15-37); BILIRUBIN,TOTAL 0.34 mg/dL (0.00-1.20); BLOOD UREA NITROGEN 8 mg/dL (7-18); BUN/CREATININE RATIO 11.26; CARBON DIOXIDE 28 mmol/L (21-32); CHLORIDE 101 mmol/L (98-107); CREATINE KINASE 39 U/L; CREATININE 0.71 mg/dL (0.60-1.30); GLUCOSE 88 mg/dL (70-110); POTASSIUM 3.7 mmol/L (3.5-5.10); SODIUM 139 mmol/L (136-145); TOTAL PROTEIN 7.2 g/dL (6.4-8.2)
[2016-11-13] MEDS ORDERED: ALBUTEROL 0.083% NEB NEB STA (16:30)
[2016-11-13] MEDS ORDERED: TYLENOL PO PRN (16:41)
[2016-11-13] MEDS ORDERED: NON-FORMULARY MEDICATION (Ibuprofen [Ibuprofen] 800 MG) PO SCH ×22 (16:45)
[2016-11-13] MEDS ORDERED: SODIUM CHLORIDE 1,000 ML IV SCH (17:00)
[2016-11-13] MEDS: DUONEB NEB SCH ×2 (17:47→22:29)
[2016-11-13] MEDS: SOLU-MEDROL 125 MG IVP SCH (20:13)
[2016-11-13] MEDS: SYMBICORT 160-4.5 MCG INHALER IH SCH (20:13)
[2016-11-13 22:42] LABS: CREATINE KINASE 37 U/L
[2016-11-14] MEDS: DUONEB NEB SCH ×6 (02:47→21:30)
[2016-11-14 05:30] LABS: COCAIN SCREEN,URINE NEGATIVE (NEGATIVE)
[2016-11-14 07:09] LABS: BASOPHILS % (AUTO) 0.3 % (0.0-3.0); HEMATOCRIT 36.1 % (37.0-47.0); HEMOGLOBIN 12.9 g/dl (12.0-16.0); IMMATURE GRANULOCYTE % (AUTO) 0.6 % (0.0-5.0); LYMPHOCYTES # (AUTO) 0.4 K/uL (0.60-3.4); LYMPHOCYTES % (AUTO) 12.4 (10.0-50.0); MEAN CORPUSCULAR HEMOGLOBIN 31.3 pg (27.0-31.0); MEAN CORPUSCULAR HGB CONC 35.7 (31.8-35.4); MEAN CORPUSCULAR VOLUME 87.6 fl (81.0-99.0); MONOCYTES # (AUTO) 0.1 K/uL (0.4-2.0); MONOCYTES % (AUTO) 2.8 (0-10); NEUTROPHILS # (AUTO) 2.7 K/ul (2.0-6.9); NEUTROPHILS % (AUTO) 83.9; PLATELET COUNT 279 10^3/uL (140-440); RED BLOOD COUNT 4.12 10^6/ul (4.20-5.40); WHITE BLOOD COUNT 3.23 K/ul (4.6-10.2)
[2016-11-14 07:43] LABS: ALANINE AMINOTRANSFERASE 24 U/L (12-78); ALBUMIN 3.2 g/dL (3.4-5.0); ALBUMIN/GLOBULIN RATIO 0.91; ALKALINE PHOSPHATASE 92 U/L (42-98); ANION GAP 10.8; ASPARTATE AMINO TRANSFERASE 14 U/L (15-37); BILIRUBIN,TOTAL 0.27 mg/dL (0.00-1.20); BLOOD UREA NITROGEN 7 mg/dL (7-18); BUN/CREATININE RATIO 10.44; CALCIUM 8.9 mg/dL (8.2-10.2); CARBON DIOXIDE 28 mmol/L (21-32); CHLORIDE 103 mmol/L (98-107); CREATINE KINASE 27 U/L; CREATININE 0.67 mg/dL (0.60-1.30); GLUCOSE 136 mg/dL (70-110); POTASSIUM 3.8 mmol/L (3.5-5.10); SODIUM 138 mmol/L (136-145); TOTAL PROTEIN 6.7 g/dL (6.4-8.2)
[2016-11-14] MEDS: SYMBICORT 160-4.5 MCG INHALER IH SCH ×2 (08:23→20:21)
[2016-11-14] MEDS: LOPRESSOR PO SCH (08:23)
[2016-11-14] MEDS: AVELOX 400 MG in PREMIX 250 ML NS 1 BAG IV SCH (08:23)
[2016-11-14] MEDS: SOLU-MEDROL 125 MG IVP SCH ×2 (08:23→21:29)
[2016-11-14] MEDS: WELLBUTRIN SR PO SCH (08:23)
[2016-11-15] MEDS: DUONEB NEB SCH ×6 (01:22→21:50)
[2016-11-15 05:50] LABS: BASOPHILS % (AUTO) 0.1 % (0.0-3.0); HEMATOCRIT 35.4 % (37.0-47.0); HEMOGLOBIN 12.2 g/dl (12.0-16.0); IMMATURE GRANULOCYTE % (AUTO) 0.8 % (0.0-5.0); LYMPHOCYTES # (AUTO) 0.5 K/uL (0.60-3.4); LYMPHOCYTES % (AUTO) 6.9 (10.0-50.0); MEAN CORPUSCULAR HEMOGLOBIN 31.2 pg (27.0-31.0); MEAN CORPUSCULAR HGB CONC 34.5 (31.8-35.4); MEAN CORPUSCULAR VOLUME 90.5 fl (81.0-99.0); MONOCYTES # (AUTO) 0.2 K/uL (0.4-2.0); MONOCYTES % (AUTO) 2.5 (0-10); NEUTROPHILS # (AUTO) 6.8 K/ul (2.0-6.9); NEUTROPHILS % (AUTO) 89.7; PLATELET COUNT 267 10^3/uL (140-440); RED BLOOD COUNT 3.91 10^6/ul (4.20-5.40); WHITE BLOOD COUNT 7.59 K/ul (4.6-10.2)
[2016-11-15 06:09] LABS: ALBUMIN 3.2 g/dL (3.4-5.0); ALBUMIN/GLOBULIN RATIO 0.94; ANION GAP 15.1; BILIRUBIN,TOTAL 0.18 mg/dL (0.00-1.20); CALCIUM 9.1 mg/dL (8.2-10.2); CREATININE 0.75 mg/dL (0.60-1.30); POTASSIUM 4.1 mmol/L (3.5-5.10); TOTAL PROTEIN 6.6 g/dL (6.4-8.2)
[2016-11-15] MEDS: AVELOX 400 MG in PREMIX 250 ML NS 1 BAG IV SCH (08:48)
[2016-11-15] MEDS: SYMBICORT 160-4.5 MCG INHALER IH SCH ×2 (08:48→20:17)
[2016-11-15] MEDS: LOPRESSOR PO SCH (08:48)
[2016-11-15] MEDS: WELLBUTRIN SR PO SCH (08:48)
[2016-11-15] MEDS: SOLU-MEDROL 125 MG IVP SCH ×2 (09:15→20:54)
[2016-11-15] MEDS: LOVENOX SUBCUT SCH (11:36)
--- NOTE | 2016-11-15 14:15 | CT ---
EXAM: CT chest without contrast. HISTORY: Shortness of breath, cough. COMPARISON: Radiograph 11/13/2016. TECHNIQUE: Multiple axial images of the chest were obtained without intravenous contrast. Images w ere reformatted in the sagittal and coronal planes. FINDINGS: Multiple cervical lymph nodes are present. The largest in the left posterolateral neck m easuring 2.2 cm short axis on axial image 1. No axillary lymphadenopathy seen. There there are sma ll axillary lymph nodes bilaterally. Multiple mediastinal lymph nodes are present measuring up to 1 cm short axis in the precarinal region and subcarinal regions. Evaluation for hilar lymphadenopath y is limited due to lack of intravenous contrast. Heart size is normal. There is no pericardial ef fusion. Mild atherosclerotic calcifications are present. Moderate emphysematous changes are present bilaterally. There are a few ill-defined nodular densiti es in both upper lobes in the perihilar regions as well as the right middle lobe. Additional left l ower lobe nodule near the diaphragm seen on axial image 55 measure approximately 0.5 cm. No pleural effusion or pneumothorax identified. Limited images of the upper abdomen demonstrate no acute abnormality. Degenerative changes are pres ent in the spine.. IMPRESSION: 1. Ill-defined upper lobe and right middle lobe nodular densities likely representing pneumonitis. Follow-up chest CT within 3 months recommended for reassessment. 2. Moderate emphysema. 3. Nonspecific left posterolateral cervical lymphadenopathy and mediastinal lymphadenopathy which w ere present on a neck CT dated 01/12/2014. Correlation advised.
[2016-11-15] MEDS ORDERED: AMBIEN PO SCH (21:00)
[2016-11-16] MEDS: DUONEB NEB SCH ×4 (01:23→13:52)
[2016-11-16 05:48] LABS: HEMATOCRIT 35.8 % (37.0-47.0); HEMOGLOBIN 12.2 g/dl (12.0-16.0); LYMPHOCYTES # (AUTO) 0.6 K/uL (0.60-3.4); LYMPHOCYTES % (AUTO) 8.4 (10.0-50.0); MEAN CORPUSCULAR HGB CONC 34.1 (31.8-35.4); MEAN CORPUSCULAR VOLUME 90.9 fl (81.0-99.0); MONOCYTES # (AUTO) 0.2 K/uL (0.4-2.0); MONOCYTES % (AUTO) 2.7 (0-10); NEUTROPHILS # (AUTO) 6.1 K/ul (2.0-6.9); NEUTROPHILS % (AUTO) 86.9; PLATELET COUNT 280 10^3/uL (140-440); RED BLOOD COUNT 3.94 10^6/ul (4.20-5.40); WHITE BLOOD COUNT 7.01 K/ul (4.6-10.2)
[2016-11-16 06:11] LABS: ALBUMIN 3.2 g/dL (3.4-5.0); ALBUMIN/GLOBULIN RATIO 0.97; BILIRUBIN,TOTAL 0.19 mg/dL (0.00-1.20); BUN/CREATININE RATIO 14.1; CALCIUM 8.8 mg/dL (8.2-10.2); CREATININE 0.78 mg/dL (0.60-1.30); TOTAL PROTEIN 6.5 g/dL (6.4-8.2)
[2016-11-16] MEDS: SOLU-MEDROL 125 MG IVP SCH (08:58)
[2016-11-16] MEDS: SYMBICORT 160-4.5 MCG INHALER IH SCH (08:58)
[2016-11-16] MEDS: AVELOX 400 MG in PREMIX 250 ML NS 1 BAG IV SCH (08:58)
[2016-11-16] MEDS: LOPRESSOR PO SCH (08:59)
[2016-11-16] MEDS: WELLBUTRIN SR PO SCH (08:59)
[2016-11-16] MEDS: LOVENOX SUBCUT SCH (08:59)
[2016-11-16 11:05] VITALS: BP 165/80; TEMP 98
--- NOTE | 2016-11-16 13:40 | PN ---
DATE OF VISIT: 11/14/16 The patient was alert and feeling better and still using nasal oxygen 2 liters. VITAL SIGNS: Temperature at 5:50 p.m. is 97.8, pulse 86, blood /78, respiratory rate 18, oxygen saturation 94 at room air. The patient claims that she is feeling better. She swears that she is not going to smoke anymore. LUNGS: The lungs still has expiratory wheezing, but less. HEART: The heart is audible with good tones. LOWER EXTREMITIES: No tenderness in the calf muscles. She had been mobile. This patient was encourages to be mobile. SHANNA
--- NOTE | 2016-11-21 14:58 | HP ---
CHIEF COMPLAINT: Increasing shortness of breath and wheezing. HISTORY OF PRESENT ILLNESS: The patient was discharged from [facility] on 10/26/2016 after a hospital stay secondary to acute exacerbation of chronic bronchitis. The patient was followed at the clinic a week after the discharge and the patient was still experiencing dyspnea with wheezing. She did go to work the day before, but was unable to perform the job. She presented again to the emergency room today because of the worsening problem. She claimed to have stopped smoking a week ago, but the patient has resumed smoking after her discharge on 10/26/2016. PAST PERSONAL HISTORY: The patient had the following medical problems; hypertension, COPD, migraine. Tonsillectomy 1984, tubal ligation 1994, basal cell carcinoma of the face removed 2015, times two, right shoulder surgery. FAMILY HISTORY: Maternal grandmother had cancer. Mother had heart disease, as well as diabetes. Some members of the family had COPD, as well as arthritis. SOCIAL HISTORY: The patient is and resides with her . She stopped smoking about a week prior to this admission. She claimed that she would never go back smoking. She works at [employer]. MEDICATIONS: Prior to this admission. Ibuprofen 800 mg tablet prn Symbicort 160/4.5 mcg two puffs twice a day Metoprolol Tartrate 25 mg daily Hydroxyzine 25 mg at bedtime Wellbutrin XR 150 mg daily Ipratropium/Albuterol Sulfate one puff every 4 to 6 hours prn Nebulizer/Compressor one every 4 to 6 hours prn Keflex 500 mg twice a day ALLERGIES: Varenicline tartrate (Chantix), Codeine, Rofecoxib and Nicotine patch. REVIEW OF SYSTEMS: CONSTITUTIONAL: The patient has no fever or chills, but has fatigue from dyspnea. POINT OF CARE TECHNICIAN: Denies any significant headaches. No dizziness, no ataxia, no history of syncope. VISUAL: Denies any blurred vision, double vision or transient loss of vision. AUDITORY: Denies any hearing problems. No tinnitus, no pain or drainage. RESPIRATORY: The patient has increasing shortness of breath with cough and wheezing. CARDIOVASCULAR: Denies any chest pain or chest tightness or chest oppression. GASTROINTESTINAL: The patient's appetite has decreased remarkably and no vomiting or diarrhea. She denies any abdominal pain. GENITOURINARY: Denies any pain, frequency or urgency of urination. MUSCULOSKELETAL: Denies any muscle or joint pains in particular joints. INTEGUMENT: Denies any rash or pruritus. ENDOCRINE: Negative. HEMATOLOGIC: No history of prolonged bleeding or easy bruising. PSYCHIATRIC: Affect is normal. PHYSICAL EXAMINATION: GENERAL: We have a 46 year old female who is alert and oriented. Still somewhat tachypneic, in spite of the oxygen. She is 5'4", 173 pounds, BMI 29.7. VITAL SIGNS: Temperature 98.5, pulse 92, blood pressure 151/105, respiratory rate 24, oxygen saturation 90. Arterial blood gases at the emergency room showed oxygen saturation 88, pH 7.40, PCO2 48, PO2 55, PCO3 30, total CO2 31, base excess +5, FIO2 21. HEAD: Unremarkable. FACE: Symmetrical and equal with no facial weakness and no significant tenderness to palpation under pressure on the frontal or maxillary sinus areas. EYES: Pupils equal/reactive to light. Conjunctivae not pale. Sclerae not icteric. MOUTH: Unremarkable. THROAT: No inflammation, no tumors or exudates. NECK: No masses. No bruit. No tenderness. CHEST: Essentially symmetrical and equal with acceptable expansion. No tenderness to percussion. LUNGS: Breath sounds are diminished in both sides with inspiratory and expiratory wheezing. HEART: Audible and regular with good tones. No murmurs. ABDOMEN: Flat, soft with no remarkable tenderness. No guarding. Bowel sounds are active. No masses palpable. LOWER EXTREMITIES: Anterior tibials present, but difficult to find the posterior tibials. There is no tenderness in the calf muscles. UPPER EXTREMITIES: Symmetrical and equal. ASSESSMENT: 1. ACUTE EXACERBATION OF CHRONIC BRONCHITIS, WORSENING 2. MODERATE TO SEVERE HYPOXEMIA 3. CHRONIC TOBACCO USE AND ABUSE, PERSISTENT. STOPPED SEVEN DAYS AGO. 4. HISTORY OF HYPERTENSION 5. HISTORY OF MIGRAINES 6. HISTORY OF TIMES TWO 7. HISTORY OF RIGHT SHOULDER SURGERY 8. HISTORY OF TONSILLECTOMY IN 1984 9. HISTORY OF TUBAL LIGATION IN 1994 MTDD
--- NOTE | 2016-11-21 15:26 | DS ---
PATIENT IDENTIFICATION: 46 year old female admitted to the hospital via the emergency room because of increasing shortness of breath. The patient has audible expiratory wheezing while in the emergency room and the arterial blood gases showed moderate to severe hypoxemia. She was discharged to 2016 from this hospital after being treated for acute exacerbation of chronic bronchitis. She was seen at the office and continued on Keflex 500 mg twice a day. The patient had resumed smoking after discharge, but stopped about 7 days prior to presentation for this admission. HOSPITAL COURSE: The patient on examination was alert and oriented, dyspneic and tachypneic with expiratory wheezing plus inspiratory at the beginning. She was afebrile on admission and remained afebrile throughout her hospital stay. The patient's blood tests during this admission consisted of CBC showing normal WBC, slightly increased monocytes 14. D Dimer 0.0. Repeat CBC showed mild leukopenia, but has returned higher and this is probably due to steroids. This patient is receiving SoluMedrol 125 mg every 12 hours. CMP also was repeated times four and is essentially unremarkable, except the blood sugar was rising, again most likely due to the steroids that she is receiving every 12 hours. Cardiac enzymes were normal times two. The albumin is below normal at 3.2. Urine drug screen is negative, except for benzo and cannabinoids. Influenza A and B rapid were negative. Chest x-ray done 11/13/16 showed lower airway thickening and may represent reactive airway disease or bronchiolitis. No focal air space consolidation. CT of the chest done 11/15/2016 showed ill defined upper lobe and right middle lobe nodular densities likely representing pneumonitis. Follow up CT of the chest within three months recommended. Moderate emphysema. Nonspecific left posterolateral cervical lymphadenopathy and mediastinal lymphadenopathies. These were present on the Ct scan of the neck back in January 12/2014. I did read the report to the patient and I told the patient that the doctor is not quite certain that it is all pneumonia, that it needed to be followed within three months to see if it has gone away or it has increased in size. I again emphasized to her that the follow up is to make certain that there is not a tumor. The patient showed good understanding and I made sure that she understood that and I told her that it needed to be repeated and that she should remind the doctor who is following her. The patient continued to improve and her oxygen saturation was between 91 to 92 and sometimes higher at room air. Her blood pressure at times was slightly above the normal range. Her respiratory rate has decreased to as low as 16 and her oxygen saturation was as high as 98 at 2 liters. Vital signs at 10 o'clock 11/16/2016 showed a temperature of 98, pulse 89, blood pressure 165/80, respiratory rate 20, oxygen saturation 91 at room air. The patient is able to move around the bed in the room without any difficulty. LUNGS: The lungs still has diminished breath sounds, but the expiratory wheezing has resolved. HEART: Audible with good tones. ABDOMEN: Unremarkable. LEGS: Has no remarkable tenderness in the calf muscles. She denies any pain in the legs with standing and walking. FINAL DIAGNOSES: 1. PNEUMONITIS, RIGHT UPPER AND MIDDLE LOBE 2. CHRONIC OBSTRUCTIVE PULMONARY DISEASE 3. MODERATE HYPOXEMIA SECONDARY TO #2 4. CHRONIC TOBACCO USE AND ABUSE, PERSISTENT UNTIL 7 DAYS AGO 5. HISTORY OF HYPERTENSION 6. HISTORY OF MIGRAINE 7. HISTORY OF TIMES TWO 8. HISTORY OF RIGHT SHOULDER SURGERY 9. HISTORY OF TONSILLECTOMY IN 1984 10. HISTORY OF TUBAL LIGATION IN 1994 PROGNOSIS: Guarded to good. If the patient keeps her word that she would stop smoking, that I do think that she will do very well. PLAN: 1. She is prescribed Levaquin 750 mg daily for five days beginning tomorrow instead of Avelox, since her insurance would not cover Avelox. 2. She also was given Decadron 4 mg tablet #8 in a decreasing dose. 3. She may resume her activities gradually. 4. She should see the provider at [facility] before going back to work. She was given the phone number of the clinic and she should call either today, if not Saturday. 5. She is reminded to make sure that she doesn't forget that her chest CT needs to be repeated before three months or within three months from today. SHANNA
--- NOTE | 2016-12-12 13:42 | PN ---
DATE OF VISIT: 11/15/16 This patient was admitted on 11/13/16. The patient seemed to have improved on 11/14/16 with less expiratory wheezing. VITAL SIGNS: At 5:56 p.m. 11/15/16 showed a temperature of 98, pulse 95, blood pressure 142/93, respiratory rate 18, oxygen saturation 94 at room air. The patient claimed that she still didn't feel any better. She was more or less anxious. Her wheezing more or less has resolved at this time. The patient 's blood cultures were negative. Sputum culture had normal terry. Rapid strep screen negative. WBC is 7,590 higher than yesterday of 3,230. RBC, hemoglobin , hematocrit borderline anemia. Chemistry showed slightly elevated sugar, probably from the IV. Alkaline phosphatase slightly elevated, but was normal yesterday. Nicotine and Cotinine none detected. Drug screen for this patient was positive for Benzo, as well as Cannabinoids. Chest CT showed ill-defined upper lobe and right middle lobe nodular densities likely representing pneumonia. Follow up CT. The follow up is recommended in three months. Moderate emphysema. Nonspecific left posterolateral cervical adenopathies. Mediastinal lymphadenopathy which were present on the neck CT done 01/12/2014. This patient was advised about cessation of smoking, which she claims she would do so. She seemed to be motivated to stop the habit. SHANNA
== END 2016-11-16 14:53 | disposition home or self-care (01) | DRG 195 ==
LOC: ED 13:37 → MEDSURG A 16:47
PROVIDERS: ADMIT General Practice; ATTEND General Practice
DX: J18.9 Pneumonia, unspecified organism (principal); J44.9 Chronic obstructive pulmonary disease, unspecified; R09.02 Hypoxemia; I10 Essential (primary) hypertension; R59.0 Localized enlarged lymph nodes; F17.210 Nicotine dependence, cigarettes, uncomplicated; F12.90 Cannabis use, unspecified, uncomplicated; F15.90 Other stimulant use, unspecified, uncomplicated; Z86.69 Personal history of other diseases of the nervous system and sense organs; Z79.899 Other long term (current) drug therapy
CPT/HCPCS: 36415; 80053; 80306; 80323; 82550; 82803; 83735; 83880; 84145; 84484; 85007; 85008; 85025; 85379; 87040; 87070; 87081; 87651; 87804; 87880; 93005; 93010; 94640; 94760; 96365; 96372; 96375; 99223; 99232; 99239; 99284

== ENCOUNTER 2016-11-28 08:52 | Outpatient (CLI) ==
--- NOTE | 2016-11-28 10:43 | CT ---
EXAM: CT of the soft tissue neck with contrast History: Enlarged lymph nodes. Comparison: CT soft tissue neck 01/12/2014, chest CT 11/28/2016 Technique: Multiplanar CT images through the soft tissue neck were obtained following administratio n of IV contrast Findings: Emphysema seen within the visualized upper lungs. A few small thyroid nodules again noted . Partially visualized prominent mediastinal lymph nodes. Please see dedicated chest CT done on the same day. Paranasal sinuses and mastoid air cells are generally clear. Calvarial abnormalities. Orbits are intact. The visualized intracranial contents demonstrate no grossly acute findings. No p arotid inflammation or parotid masses. Submandibular glands are not inflamed. Epiglottis is not th ickened. No prevertebral soft tissue swelling. No acute osseous abnormalities. No dominant enlarged left supraclavicular lymph node has increased in size now measuring 2.6 cm x 2.4 cm which previousl y measured 2.1 cm x 1.5 cm and demonstrates irregular margins with surrounding smaller lymph nodes. Impression: Increasing size of abnormal appearing left supraclavicular lymph node which could be ma lignant and further evaluation is recommended.
--- NOTE | 2016-11-28 10:43 | CT ---
EXAM: CT chest with contrast HISTORY: Abnormal findings on diagnostic imaging of other specified body structures, right middle l obe nodular density is likely representing pneumonitis described on CT 11/15/2016 COMPARISON: 11/15/2016 TECHNIQUE: CT chest performed with intravenous contrast. Coronal and sagittal reformatted images o btained. FINDINGS: Please refer to separate report CT neck regarding findings in the thoracic inlet. Thyroi d unremarkable. Heart normal in size. No pericardial effusion. Aorta normal in caliber. Esophagus appears normal. Visualized portion upper abdomen demonstrates no acute abnormality. Small focal a joao right renal scarring noted. No acute abnormalities of the bones. Mild degenerative change in t he spine. Central airway patent. Moderate centrilobular emphysema. No pleural effusion. No pneu mothorax. There is improved ground-glass nodularity with minimal residual areas of nodularity, for example right lung image 38. Mild subsegmental atelectasis right middle lobe and lingula. There ar e several stable borderline enlarged mediastinal lymph nodes measuring up to 1.0 cm. The the on IMPRESSION: 1. Improved nodularity with minimal residual nodularity, likely representing improved pneumonitis. Recommend CT chest follow-up 6 months for reevaluation. Mild subsegmental atelectasis right middle lobe and lingula. 2. Several borderline enlarged mediastinal lymph nodes, unchanged. 3. Moderate emphysema. 4. Please see separate report CT neck.
== END 2016-11-28 08:53 | disposition home or self-care (01) ==
LOC: RAD 08:52
PROVIDERS: ATTEND Nurse Practitioner Family
DX: R93.8 Abnormal findings on diagnostic imaging of other specified body structures (principal); R59.0 Localized enlarged lymph nodes; Z87.891 Personal history of nicotine dependence

== ENCOUNTER 2017-09-13 13:21 | Outpatient (CLI) ==
[2017-04-29 13:05] VITALS: BMI 29.7
== END 2017-09-13 13:22 | disposition home or self-care (01) ==
LOC: LAB 13:21
PROVIDERS: ATTEND Emergency Medicine
DX: R68.89 Other general symptoms and signs (principal)
CPT/HCPCS: 87502

== ENCOUNTER 2019-10-29 11:58 | Inpatient (IN) ==
--- NOTE | 2019-10-29 12:35 | ED.PDOC ---
General ED Provider: Dr. CARLTON BOOKER Chief Complaint: Respiratory Complaint Stated Complaint: Cough and congestion with associated fever, headache, and shaking chills Time Seen by Physician: 12:10 Mode of Arrival: Walk-In Information Source: Patient Exam Limitations: No limitations Primary Care Provider: CARLTON DARNELL Nursing and Triage Documentation Reviewed and Agree: Yes Does patient meet sepsis criteria?: No System Inflammatory Response Syndrome: Pulse >90 BPM and Resp >20/Minute Sepsis Protocol: For patient's 13 years and over: Temp is 96.8 and below OR 101 and greater Pulse >90 BPM Resp >20/minute Acutely Altered Mental Status Are patient's symptoms suggestive of a new infection, such as: -Pneumonia -Skin, Soft Tissue -Endocarditis -UTI -Bone, Joint Infection -Implantable Device -Acute Abdominal Infection -Wound Infection -Meningitis -Blood Stream Catheter Infection -Unknown Respiratory Complaint Exam Respiratory Complaint/Exam Onset/Duration: 3 DAYS Symptoms Are: Still present Timing: Constant Initial Severity: Moderate Current Severity: Severe Location: Chest Character: Reports Productive cough, Barking cough and Bronchospastic cough Aggravating: Reports URI Alleviating: Reports Bronchodilators Associated Signs and Symptoms: Reports Dyspnea, Chills, Pleuritic chest pain, Wheezing and Hoarseness Related History: Reports Similar episode History of Healthcare-Acquired Pneumonia: No Related Surgical History: Reports None Pulmonary Embolism Risk Factors: None Cardiac Risk Factors: Reports None Pseudomonas Risk Factors: Reports None Tuberculosis Risk Factors: Reports None Status Asthmaticus Risk Factors: Reports None Home Oxygen Use: No Recent Stress Test: No Recent Echo/LV Function: No Current Antibiotic Use: No Current Asthma Medication Use: No Respiratory Distress: Moderate Inadequate Respiratory Effort: Yes Dysphagia Present: Yes Stridor Present: No JVD Present: No Accessory Muscle Use: No Retractions: Not Present Diminished Breath Sounds: Yes Sinus Tenderness: None Grunting Respirations: No Kussmaul Respirations: No Differential Diagnoses: Asthma, Pneumonia and Bronchospasm Quality Indicators For Pneumonia: Blood Cultures-SCU admit, Antibiotics in 6hr- admit, SpO2 assessed, Empiric Antibiotic Rx, Vital signs and Mental status assessed Review of Systems Review Of Systems Constitutional: Reports No symptoms, Fever, Weakness and Loss of appetite Eyes: Reports No symptoms Ears, Nose, Mouth, Throat: Reports No symptoms Respiratory: Reports Cough, Short of air and Wheezing Cardiac: Reports No symptoms GI: Reports No symptoms : Reports No symptoms Musculoskeletal: Reports Back pain Skin: Reports No symptoms Neurological: Reports No symptoms Endocrine: Reports No symptoms Hematologic/Lymphatic: Reports No symptoms All Other Systems: Reviewed and Negative [facility] Medical History (Updated 10/29/19 @ 15:58 by ASHLEE DUMONT RN) Basal cell carcinoma Social History (Updated 10/29/19 @ 16:03 by ASHLEE DUMONT RN) Smoking and tobacco status: Current every day smoker Tobacco type: cigarettes Quit status: considering quitting Second hand smoke exposure: Yes Smoking risk assessment performed: No Female Reproductive History Menstrual Hx Hysterectomy: No Hx Tubal Ligation: Yes Physical Exam Physical Exam Appearance: Reports Ill-appearing Ill-appearing: Moderate Pain Distress: Mild Eyes: Reports KATHRIN, EOMI and Conjunctiva clear ENT: Reports Ears normal, Nose normal and Oropharynx normal Neck: Supple Respiratory: Reports Airway patent, Breath sounds equal, Breath sounds diminished, Respirations nonlabored, Rhonchi and Wheezes Cardiovascular: Reports RRR, Pulses normal, No rub and No murmur GI/: Reports Soft, Nontender, No masses, Bowel sounds normal and No Organomegaly Musculoskeletal: Reports Normal strength, ROM intact, No edema and No calf tenderness Skin: Reports Warm, Dry and Normal color Neurological: Reports Sensation intact, Motor intact, Reflexes intact, Cranial nerves intact, Alert and Oriented Psychiatric: Reports Affect appropriate and Mood appropriate Interpretation Radiology Interpretation Radiology Interpretation By: Radiologist Radiology Results: Positive (Lt UPPER LOBE PNEUMONIA) Xray Comments: Lt UPPER LOBE PNEUMONIA Physician Notification Case Discussed Physician Notified: Dr Darnell- Discussed Case /agreed to admission Time of Notification: 14:54 Critical Care Note Critical Care Note Total Time (mins): 60 Course Course Hematology/Chemistry: 10/29/19 12:55 10/29/19 12:55 Orders, Labs, Meds: Lab Review 10/29/19 10/29/19 10/29/19 12:54 12:55 12:55 WBC 8.79 RBC 4.81 Hgb 14.8 Hct 42.0 MCV 87.3 MCH 30.8 MCHC 35.2 RDW Coeff of Rico 12.0 Plt Count 217 Immature Gran % (Auto) 0.2 Neut % (Auto) 84.5 H Lymph % (Auto) 7.5 L [place] % (Auto) 7.6 Eos % (Auto) 0.0 Baso % (Auto) 0.2 Immature Gran # (Auto) 0.0 Neut # (Auto) 7.4 H Lymph # (Auto) 0.7 Cooke # (Auto) 0.7 Eos # (Auto) 0.0 Baso # (Auto) 0.0 Sodium 132.0 L Potassium 3.51 Chloride 94.9 L Carbon Dioxide 26.0 Anion Gap 14.61 BUN 10.1 Creatinine 0.65 Estimated GFR (MDRD) 96.00 BUN/Creatinine Ratio 15.53 Glucose 110.2 H Lactic Acid Calcium 9.72 Total Bilirubin 1.10 AST 24.6 ALT 18.2 Alkaline Phosphatase 112.5 Total Protein 8.33 H Albumin 4.45 Globulin 3.88 Albumin/Globulin Ratio 1.14 Urine Color Urine Clarity Urine pH Ur Specific [place] Urine Protein Urine Glucose (UA) Urine Ketones Urine Blood Urine Nitrite Urine Bilirubin Urine Urobilinogen Ur Leukocyte Esterase Urine Microscopic RBC Ur Squamous Epith Cells Urine Mucus Urine Opiates Screen Ur Oxycodone Screen Urine Methadone Screen Ur Propoxyphene Screen Ur Barbiturates Screen U Tricyclic Antidepress Ur Phencyclidine Scrn Ur Amphetamine Screen U Methamphetamines Scrn U Benzodiazepines Scrn Urine Cocaine Screen U Cannabinoids Screen Influ A Molecular Assay Negative by naat Influ B Molecular Assay Negative by naat RSV Antigen Negative by naat 10/29/19 10/29/19 10/29/19 12:55 14:50 14:50 WBC RBC Hgb Hct MCV MCH MCHC RDW Coeff of [place] Plt Count Immature Gran % (Auto) Neut % (Auto) Lymph % (Auto) Cooke % (Auto) Eos % (Auto) Baso % (Auto) Immature Gran # (Auto) Neut # (Auto) Lymph # (Auto) [place] # (Auto) Eos # (Auto) Baso # (Auto) Sodium Potassium Chloride Carbon Dioxide Anion Gap BUN Creatinine Estimated GFR (MDRD) BUN/Creatinine Ratio Glucose Lactic Acid 0.90 Calcium Total Bilirubin AST ALT Alkaline Phosphatase Total Protein Albumin Globulin Albumin/Globulin Ratio Urine Color [place] Urine Clarity Clear Urine pH 6.0 Ur Specific [place] 1.025 Urine Protein 1+ H Urine Glucose (UA) Negative Urine Ketones 4+ Urine Blood Trace-intact H Urine Nitrite Negative Urine Bilirubin 2+ H Urine Urobilinogen 1.0 H Ur Leukocyte Esterase Negative Urine Microscopic RBC 0-2 Ur Squamous Epith Cells 10-20 Urine Mucus 2+ Urine Opiates Screen Negative Ur Oxycodone Screen Positive Urine Methadone Screen Negative Ur Propoxyphene Screen Negative Ur Barbiturates Screen Negative U Tricyclic Antidepress Negative Ur Phencyclidine Scrn Negative Ur Amphetamine Screen Negative U Methamphetamines Scrn Negative U Benzodiazepines Scrn Negative Urine Cocaine Screen Negative U Cannabinoids Screen Positive Influ A Molecular Assay Influ B Molecular Assay RSV Antigen Orders Category Date Time Status EKG-(ED ONLY) Stat CARDIO 10/29/19 12:39 Completed NEBULIZER TREATMENT Stat CARDIO 10/29/19 12:40 Completed NEBULIZER TREATMENT Stat CARDIO 10/29/19 14:56 Completed IV [ED IV/MEDIPORT/POWERPORT] .ONCE EMERGENCY 10/29/19 12:38 Active BLOOD CULTURE (ED ONLY) Stat LAB 10/29/19 12:55 Received CBC W/ AUTO DIFF Stat LAB 10/29/19 12:55 Completed CMP [COMPREHENSIVE METABOLIC PANEL] Stat LAB 10/29/19 12:55 Completed FLU A & B MOLECULAR [FLU A/B MOLECULAR] Stat LAB 10/29/19 12:54 Completed LACTIC ACID Stat LAB 10/29/19 12:55 Completed RAPID STREP SCREEN [MOLECULAR GROUP A STREP] Stat LAB 10/29/19 12:54 Completed RSV Stat LAB 10/29/19 12:54 Completed UA [URINALYSIS C & S IF INDICATED] Stat LAB 10/29/19 14:50 Completed URINE DRUG SCREEN (RAPID FOR ED) [DRUG SCREEN, URINE, LAB 10/29/19 14:50 Completed RAPID] Stat 0.9 % Sodium Chloride [Saline Flush] MEDS 10/29/19 12:38 Active 1 syr IVF PRN PRN Acetaminophen [Tylenol] MEDS 10/29/19 12:39 Discontinued 650 mg PO ONCE ONE Azithromycin [Zithromax] MEDS 10/29/19 13:45 Discontinued 500 mg PO ONCE STA Ceftriaxone/D5w 2 gm Premix [Rocephin 2 gm/50 ml D5w] MEDS 10/29/19 13:45 Discontinued 2 gm in 50 ml IV ONCE Ibuprofen [Motrin] MEDS 10/29/19 14:05 Discontinued 600 mg PO ONCE STA Ipratropium/Albuterol Neb [Duoneb] MEDS 10/29/19 12:40 Discontinued 3 ml NEB ONCE STA Levalbuterol HCl [Xopenex 0.63 mg] MEDS 10/29/19 14:56 Discontinued 0.63 mg NEB ONCE STA Methylprednisolone Sod Succ/Pf [Solu-Medrol 125 mg] MEDS 10/29/19 13:47 Discontinued 125 mg IM ONCE STA Sodium Chloride 0.9% [Sodium Chloride] 1,000 ml MEDS 10/29/19 12:38 Discontinued IV BOLUS CHEST, 1V AP ONLY Stat RADS 10/29/19 12:35 Completed Medications Generic Name Dose Route Start Last Admin Trade Name Luna PRN Reason Stop Dose Admin Acetaminophen 650 mg 10/29/19 15:14 Tylenol PO Q4H PRN Fever >101 Albuterol/Ipratropium 3 ml 10/29/19 20:00 Duoneb NEB RTQID MICHELLE Azithromycin 250 mg 10/30/19 09:00 Zithromax PO 11/02/19 10:00 DAILY MICHELLE Gabapentin 600 mg 10/29/19 21:00 10/29/19 20:06 Neurontin PO 600 mg BEDTIME MICHELLE Administration Sodium Chloride 1,000 mls @ 50 mls/hr 10/29/19 15:30 10/29/19 15:55 Sodium Chloride IV 50 mls/hr .Q20H MICHELLE Administration CEFTRIAXONE/D5W 1 GM PREMIX 1 gm in 50 mls @ 75 mls/hr 10/30/19 09:00 Rocephin 1 Gm/50 Ml D5w IV 11/02/19 08:59 DAILY [facility] Methylprednisolone Sodium Succinate 20 mg 10/29/19 21:00 10/29/19 20:06 Solu-Medrol 125 Mg IVP 20 mg Q12HR MICHELLE Administration Non-Formulary Medication 2 puff 10/30/19 09:00 Tiotropium-Olodaterol [Stiolto Respimat] IH DAILY MICHELLE Oxycodone/Acetaminophen 1 tab 10/29/19 15:32 Percocet 10-325 PO QID PRN Analgesia Sodium Chloride 1 syr 10/29/19 12:38 10/29/19 15:54 Saline Flush IVF 1 syr PRN PRN Administration To flush IV Discontinued Medications Generic Name Dose Route Start Last Admin Trade Name Luna PRN Reason Stop Dose Admin Acetaminophen 650 mg 10/29/19 12:39 10/29/19 12:57 Tylenol PO 10/29/19 12:40 650 mg ONCE ONE Administration Albuterol/Ipratropium 3 ml 10/29/19 12:40 10/29/19 12:51 Duoneb NEB 02/13/20 12:41 3 ml ONCE STA Administration Azithromycin 500 mg 10/29/19 13:45 10/29/19 14:09 Zithromax PO 10/29/19 13:46 500 mg ONCE STA Administration Sodium Chloride 1,000 mls @ 1,000 mls/hr 10/29/19 12:38 10/29/19 13:06 Sodium Chloride IV 10/29/19 13:37 1,000 mls/hr BOLUS STA Administration CEFTRIAXONE/D5W 2 GM PREMIX 2 gm in 50 mls @ 75 mls/hr 10/29/19 13:45 10/29/19 14:04 Rocephin 2 Gm/50 Ml D5w IV 10/29/19 14:24 75 mls/hr ONCE STA Administration Ibuprofen 600 mg 10/29/19 14:05 10/29/19 14:11 Motrin PO 10/29/19 14:06 600 mg ONCE STA Administration Levalbuterol HCl 0.63 mg 10/29/19 14:56 10/29/19 15:06 Xopenex 0.63 Mg NEB 10/29/19 14:57 0.63 mg ONCE STA Administration Methylprednisolone Sodium Succinate 125 mg 10/29/19 13:47 10/29/19 14:19 Solu-Medrol 125 Mg IM 10/29/19 13:48 Not Given ONCE STA Methylprednisolone Sodium Succinate 125 mg 10/29/19 14:00 10/29/19 14:15 Solu-Medrol 125 Mg IVP 10/29/19 14:01 125 mg ONCE STA Administration Vital Signs: Temp Pulse Resp BP Pulse Ox 10/29/19 14:00 101.5 F H 10/29/19 11:58 100.1 F H 115 H 28 H 145/81 H 97 Discharge Plan Discharge Patient Disposition: ADMITTED INPATIENT Discharge Problem: Pneumonia, COPD exacerbation ED Provider: CARLTON BOOKER Condition: Fair Discharge Date/Time: 10/29/19 15:30 Additional Information: Patient States she has no allergy to Ibuprofen or Naprosyn-Has tolerated previously Discussed with Dr Darnell for admisssion
[2019-10-29] MEDS ORDERED: SODIUM CHLORIDE 1,000 ML IV STA (12:38)
[2019-10-29] MEDS ORDERED: TYLENOL PO ONE (12:39)
[2019-10-29] MEDS ORDERED: DUONEB NEB STA (12:40)
--- NOTE | 2019-10-29 13:25 | DI ---
EXAM: Chest one view HISTORY: Cough COMPARISON: 11/13/2016 TECHNIQUE: Single view of the chest was performed FINDINGS: Normal heart size. Normal mediastinal contour. Peripheral left upper lung patchy airspace opacities. No pleural effusion or pneumothorax. No acute abnormalities of the bones. IMPRESSION: Left upper lung pneumonia.
[2019-10-29] MEDS ORDERED: ZITHROMAX PO STA (13:45)
[2019-10-29] MEDS ORDERED: ROCEPHIN 2 GM/50 ML D5W 2 GM/50 ML BAG IV STA (13:45)
[2019-10-29] MEDS ORDERED: SOLU-MEDROL 125 MG IM STA (13:47)
[2019-10-29] MEDS ORDERED: SOLU-MEDROL 125 MG IVP STA (14:00)
[2019-10-29] MEDS ORDERED: MOTRIN PO STA (14:05)
[2019-10-29] MEDS ORDERED: XOPENEX 0.63 MG NEB STA (14:56)
[2019-10-29] MEDS ORDERED: TYLENOL PO PRN (15:14)
[2019-10-29] MEDS: SODIUM CHLORIDE 1,000 ML IV SCH (15:55)
[2019-10-29 16:13] VITALS: BMI 28.2
[2019-10-29] MEDS: SOLU-MEDROL 125 MG IVP SCH (20:06)
[2019-10-29] MEDS: NEURONTIN PO SCH (20:06)
[2019-10-29] MEDS: DUONEB NEB SCH (20:09)
[2019-10-30] MEDS: DUONEB NEB SCH ×4 (04:43→19:42)
[2019-10-30] MEDS: ROCEPHIN 1 GM/50 ML D5W 1 GM/50 ML BAG IV SCH (09:16)
[2019-10-30] MEDS: ZITHROMAX PO SCH (09:18)
[2019-10-30] MEDS: NON-FORMULARY MEDICATION (Tiotropium-Olodaterol [Stiolto Respimat] 2 PUFF) IH SCH (11:00)
[2019-10-30] MEDS: PERCOCET 10-325 PO PRN (11:57)
[2019-10-30] MEDS: SODIUM CHLORIDE 1,000 ML IV SCH (13:49)
[2019-10-30] MEDS: SOLU-MEDROL 125 MG IVP SCH ×2 (13:49→20:07)
[2019-10-30] MEDS: NEURONTIN PO SCH (20:07)
[2019-10-31] MEDS: DUONEB NEB SCH ×4 (05:02→19:20)
[2019-10-31] MEDS: PERCOCET 10-325 PO PRN ×2 (05:14→16:05)
[2019-10-31 05:53] LABS: HEMATOCRIT 33.7 % (37.0-47.0)
[2019-10-31] MEDS: ROCEPHIN 1 GM/50 ML D5W 1 GM/50 ML BAG IV SCH (09:03)
[2019-10-31] MEDS: ZITHROMAX PO SCH (09:03)
[2019-10-31] MEDS: SOLU-MEDROL 125 MG IVP SCH ×2 (09:03→21:16)
--- NOTE | 2019-10-31 09:24 | DI ---
Exam: Chest two views HISTORY: Pneumonia, follow-up FINDINGS: Compared to 10/29/2019. The previously seen density in the left lateral upper lobe has bec ome slightly more dense. Lungs otherwise remain clear. There is no vascular congestion, pneumothora x or pleural fluid. IMPRESSION: 1. Slightly more dense infiltrate in the lateral left upper lobe. This could indicate pneumonia. C orrelate clinically.
[2019-10-31] MEDS: NON-FORMULARY MEDICATION (Tiotropium-Olodaterol [Stiolto Respimat] 2 PUFF) IH SCH (09:49)
[2019-10-31] MEDS ORDERED: ATIVAN PO SCH (21:00)
[2019-10-31] MEDS: NEURONTIN PO SCH (21:16)
[2019-11-01] MEDS: PERCOCET 10-325 PO PRN ×2 (03:51→09:04)
[2019-11-01] MEDS: DUONEB NEB SCH ×3 (04:50→14:22)
[2019-11-01 04:58] LABS: HEMATOCRIT 35.9 % (37.0-47.0)
[2019-11-01] MEDS: SODIUM CHLORIDE 1,000 ML IV SCH ×2 (06:56→07:09)
[2019-11-01] MEDS: ZITHROMAX PO SCH (08:11)
[2019-11-01] MEDS: SOLU-MEDROL 125 MG IVP SCH (08:12)
[2019-11-01] MEDS: ROCEPHIN 1 GM/50 ML D5W 1 GM/50 ML BAG IV SCH (08:12)
[2019-11-01] MEDS: NON-FORMULARY MEDICATION (Tiotropium-Olodaterol [Stiolto Respimat] 2 PUFF) IH SCH (08:49)
[2019-11-01 14:14] VITALS: BP 146/86; TEMP 97.6
--- NOTE | 2019-11-02 08:29 | HP ---
CHIEF COMPLAINT: "I have been coughing." DISCUSSION: This is a 49-year-old lady with history of tobacco use who presented to the Emergency Department with a 2 to 3 day history of productive cough. She had a cough productive of yellow sputum associated with fever up to 102 with headache and chills. She was seen in the Emergency Department by Dr. Morrison. A chest x- ray revealed evidence of a dense left upper lobe pneumonia. Dr. Morrison did not feel she could be treated as an outpatient, felt she required inpatient admission and the patient was admitted to my services for treatment of underlying pneumonia. PAST MEDICAL HISTORY: MEDICATIONS: Gabapentin 600 mg q.h.s. Percocet 7.5 mg q.i.d. Stiolto two puff INH daily ALLERGIES: VARENICLINE TARTRATE (FROM CHANTIX), CODEINE, ROFECOXIB (FROM VIOXX), CODEINE, NICOTINE PATCH PAST MEDICAL HISTORY: History of right shoulder strain History of postherpetic neuralgia followed by pain management History of COPD PAST SURGICAL HISTORY: Hysterectomy SOCIAL HISTORY: She is a smoker, smokes one to two packs per day. FAMILY HISTORY: Reviewed and no familial tendencies. REVIEW OF SYSTEMS: She has mild headache with fever of 102 with chills. Denies any chest pain other than chest pain with cough. She has had shortness of breath. She has had a cough productive of yellowish-green sputum. Denies any abdominal pain, blood in the stool, urinary symptoms or seizures. PHYSICAL EXAMINATION: V/S: Temperature 101.5, pulse 115, respirations 28, blood pressure 145/81. GENERAL: Exam confirms a 49-year-old lady who appears acutely ill. She is alert, oriented times three. HEENT: Pupils are equal and round. NECK: Supple. CHEST: Reveals rales left side of chest. CARDIOVASCULAR: Regular rate and rhythm. ABDOMEN: Soft, nontender. EXTREMITIES: Distal extremities without cyanosis or edema. ASSESSMENT: 1. PNEUMONIA, LEFT UPPER LOBE, COMMUNITY ACQUIRED. PLAN: 1. Admission. 2. Antibiotics. 3. Bronchodilators. 4. Steroids. 5. I encourage smoking cessation. 6. Please see orders. MTDD
--- NOTE | 2019-11-02 08:34 | PN ---
DATE OF VISIT: 10/30/19 SUBJECTIVE: Ms. Carlton says she feels better. She says her temperature is better as well as her chills. She still has some cough. She continues to smoke. PHYSICAL EXAMINATION: VITAL SIGNS: Temperature 98.7, pulse 80, respirations 18, blood pressure 138/85. HEENT: Pupils are round. NECK: Supple. CHEST: Bilateral rales. CARDIOVASCULAR: Regular rate and rhythm. ABDOMEN: Soft, nontender. EXTREMITIES: Distal extremities without cyanosis or edema. ASSESSMENT: 1. COMMUNITY ACQUIRED PNEUMONIA. PLAN: 1. Continue antibiotics. 2. Please see orders. MTDD
--- NOTE | 2019-11-02 08:43 | PN ---
DATE OF VISIT: 10/31/19 @ 7 p.m. SUBJECTIVE: Ms. Carlton was somewhat annoyed by the fact that she didn't get to go home today. Her chest x-ray from the radiologist revealed that her pneumonia was slightly worse. Clinically however she was feeling better. Her temperature was down, she has had no chills. She is not short of breath. She is up and walking. Nursing staff reports that she goes out frequently to smoke. PHYSICAL EXAMINATION: VITAL SIGNS: Temperature 98.8, pulse 80, respiratory rate 20, BP 120/80. HEENT: Pupils are round. NECK: Supple. CHEST: Lungs are actually improved. Scattered rhonchi. CARDIOVASCULAR: Regular rate and rhythm. ABDOMEN: Soft, nontender. EXTREMITIES: Distal extremities without cyanosis or edema. IMPRESSION: 1. Community acquired pneumonia. PLAN: 1. Will go ahead and continue antibiotics for now, will reassess tomorrow. VADIMD
--- NOTE | 2019-11-02 08:53 | PN ---
DATE OF SERVICE: 11/01/19 SUBJECTIVE: Ms. Carlton continues to improve clinically. She has no fever or chills. She is outside frequently smoking in front of the nursing staff. She does not appear to be in acute distress. Her oximetries are acceptable. PHYSICAL EXAMINATION: VITAL SIGNS: Temperature 98.8, pulse 80, respiratory 20, BP 130/80. HEENT: Head normocephalic, atraumatic. Eyes: Extraocular muscles are intact. Pupils are equal, round and reactive to light and accommodation. Ears: No lesions. Nose appeared normal. Throat: No exudate or erythema. NECK: Supple. No JVD, no carotid bruit. No lymphadenopathy or thyromegaly. LUNGS: Scattered rhonchi. Percussion note normal. Chest symmetrical. HEART: S1, S2, no S3. No murmurs. No cyanosis or clubbing. No ascites. Pulses: Dorsalis pedis and posterior tibial pulses +1 to +2 bilaterally. ABDOMEN: Soft. Nontender. Bowel sounds active. No CVA tenderness. No mass felt. EXTREMITIES: No edema. Full range of motion of all extremities, equal. NEUROLOGIC: No focal deficit. Cranial nerves II through XII are grossly intact. No headache, no double vision or headache. SKIN: Not dry. Intact. Turgor - normal. LYMPHATIC: No palpable lymph nodes/no lymphedema. MUSCULOSKELETAL: Normal joints with no swelling. Muscle tone is normal. ASSESSMENT: 1. Community acquired pneumonia. PLAN: Her daughter is here from [place]. I think she is better clinically despite what the x-ray report reveals. I actually examined the x-ray myself and to my view it does not appear any worse and in fact revealed clinical improvement. I think she is fine to go home. I encouraged her with smoking cessation. I talked with her about techniques of stopping smoking. We will send her home with Augmentin as well as Doxycycline. I will see her back this week in the office. I have asked to see her on Saturday so we can repeat her x-ray. She understands the importance of repeating the chest x-ray. TIME SPENT: More than 30 minutes. Plan and coordination of the patient's care discussed in the presence of nurse. SHANNA
--- NOTE | 2019-11-02 09:03 | DS ---
DISCHARGE DIAGNOSES: 1. COMMUNITY ACQUIRED PNEUMONIA 2. TOBACCO USE DISCUSSION: This is a 49-year-old lady with history of tobacco use who presented to the Emergency Department with a 2 to 3 day histor of productive cough. She had a cough productive of yellow sputum associated with fever up to 102 with headache and chills. She was seen in the Emergency Department by Dr. Morrison. A chest x- ray revealed evidence of a dense left upper lobe pneumonia. Dr. Morrison did not feel she could be treated as an outpatient, felt she required inpatient admission and the patient was admitted to my services for treatment of underlying pneumonia. CLINICAL COURSE: She was admitted to the hospital. Her complaints of fever and chills rapidly resolved. She was not particularly short of breath. As a matter of fact, the nursing staff reported that she frequently went outside to smoke. I talked to her about smoking cessation. She had no hemoptysis. I explained the importance of repeating the x-ray and she voiced her understanding. Therefore, she was discharged with prescriptions for Augmentin as well as Doxycycline. I asked to see her this Saturday in the office with orders to repeat her chest x-ray. Again, I emphasized the importance of repeating the x-ray until the pneumonia shows clearing on the radiograph. She voiced her understanding of that. SHANNA
== END 2019-11-01 15:08 | disposition home or self-care (01) | DRG 194 ==
LOC: ED 11:58 → MEDSURG B 15:06
PROVIDERS: ADMIT Family Medicine; ATTEND Family Medicine

== ENCOUNTER 2021-08-13 07:52 | Inpatient (IN) ==
[2021-08-13] MEDS ORDERED: SOLU-MEDROL 125 MG IVP ONE (08:00)
[2021-08-13] MEDS ORDERED: VENTOLIN HFA (PER PUFF-WITH SPACER) IH ONE ×2 (08:00→09:45)
[2021-08-13] MEDS ORDERED: SPIRIVA IH ONE (08:05)
[2021-08-13] MEDS ORDERED: SODIUM CHLORIDE 500 ML IV STA (08:05)
[2021-08-13] MEDS ORDERED: MUCINEX DM ER 600-30 MG TABLET PO ONE (08:06)
[2021-08-13] MEDS ORDERED: TORADOL IM ONE (08:09)
[2021-08-13 08:11] LABS: BORDETELLA PARAPERTUSSIS (PCR) NOT DETECTED (NOT DETECT); BORDETELLA PERTUSSIS (PCR) NOT DETECTED (NOT DETECT); CHLAMYDIA PNEUMONIAE (PCR) NOT DETECTED (NOT DETECT); CORONAVIRUS 229E (PCR) NOT DETECTED (NOT DETECT); CORONAVIRUS HKU1 (PCR) NOT DETECTED (NOT DETECT); CORONAVIRUS NL63 (PCR) NOT DETECTED (NOT DETECT); CORONAVIRUS OC43 (PCR) NOT DETECTED (NOT DETECT); HUMAN METAPNEUMOVIRUS (PCR) NOT DETECTED (NOT DETECT); INFLUENZA B (PCR) NOT DETECTED (NOT DETECT); MYCOPLASMA PNEUMONIAE (PCR) NOT DETECTED (NOT DETECT); PARAINFLUENZA VIRUS 1 (PCR) NOT DETECTED (NOT DETECT); PARAINFLUENZA VIRUS 2 (PCR) NOT DETECTED (NOT DETECT); PARAINFLUENZA VIRUS 3 (PCR) NOT DETECTED (NOT DETECT); PARAINFLUENZA VIRUS 4 (PCR) NOT DETECTED (NOT DETECT); RESPIRATORY SYNCYTIAL V (PCR) NOT DETECTED (NOT DETECT); SARS_COV_2 (PCR) NOT DETECTED (NOT DETECT)
[2021-08-13 08:12] LABS: BASOPHILS % (AUTO) 0.3 % (0.0-3.0); EOSINOPHILS # (AUTO) 0.4 K/ul (0.0-0.7); EOSINOPHILS % (AUTO) 5.1 % (0.0-7.0); HEMATOCRIT 42.6 % (37.0-47.0); HEMOGLOBIN 14.5 g/dl (12.0-16.0); IMMATURE GRANULOCYTE % (AUTO) 0.3 % (0.0-5.0); LYMPHOCYTES # (AUTO) 0.9 K/uL (0.60-3.4); LYMPHOCYTES % (AUTO) 9.9 (10.0-50.0); MEAN CORPUSCULAR HEMOGLOBIN 31.1 pg (27.0-31.0); MEAN CORPUSCULAR VOLUME 91.4 fl (81.0-99.0); MONOCYTES # (AUTO) 0.5 K/uL (0.4-2.0); MONOCYTES % (AUTO) 5.2 (0-10); NEUTROPHILS # (AUTO) 6.8 K/ul (2.0-6.9); NEUTROPHILS % (AUTO) 79.2 % (42.2-75.2); PLATELET COUNT 236 10^3/uL (140-440); RDW COEFFICIENT OF VARIATION 12.8 % (11.6-14.8); RED BLOOD COUNT 4.66 10^6/ul (4.20-5.40); WHITE BLOOD COUNT 8.58 K/ul (4.6-10.2)
[2021-08-13 08:21] LABS: ABG O2 HGB 89.2 % (95-100); ABG PH 7.47 (7.35-7.45); BEecf 8.3 (-2.0-3.0); COHb 5.6 (0.5-1.5); MetHb 1.7 (0-1.5); TCO2 33.4 (19-24); sO2 93.7 % (94-98); tHb 14.5 g/dl (11.7-17.4)
[2021-08-13] MEDS ORDERED: MUCINEX ONE (08:22)
[2021-08-13 08:31] LABS: ALANINE AMINOTRANSFERASE 25.1 U/L (0-35); ALBUMIN 4.17 g/dL (3.5-5.0); ALKALINE PHOSPHATASE 107.8 U/L (38-126); ASPARTATE AMINO TRANSFERASE 22.5 U/L (14-36); BILIRUBIN,TOTAL 0.67 mg/dL (0.2-1.3); BLOOD UREA NITROGEN 8.2 mg/dL (7-17); CALCIUM 9.11 mg/dL (8.4-10.2); CARBON DIOXIDE 32.2 mmol/L (22-30.0); CHLORIDE 100.9 mmol/L (98-107); CREATININE 0.61 mg/dL (0.60-1.30); GLUCOSE 108.4 mg/dL (74-106); POTASSIUM 4.06 mmol/L (3.5-5.1); SODIUM 138.5 mmol/L (134.5-145)
[2021-08-13 08:42] LABS: TROPONIN I < 0.012 ng/ml (0.0000-0.120)
--- NOTE | 2021-08-13 08:47 | CT ---
EXAM: CT chest without contrast HISTORY: Shortness of breath and chest pain COMPARISON: Chest x-ray 06/16/2020 and multiple priors including CT chest 11/28/2016 TECHNIQUE: Serial axial images of the chest were obtained from the lung apices to the upper abdomen without contrast. These were viewed in multiple planes. FINDINGS: The thyroid is normal. The visualized vessels demonstrate mild calcific atherosclerotic d isease without aneurysm or stenosis. The heart is normal in size without pericardial effusion. Ther e are multiple mediastinal lymph nodes with a precarinal lymph node measuring 1 cm in short axis. Th ere is a subcarinal lymph node measuring 1.1 cm. There are no enlarged axillary lymph nodes. There is no pneumothorax or effusion. There is moderate emphysema. There is no consolidation, nodul e or mass. There is no abnormal ground-glass. The airways are patent. The osseous structures demonstrate no acute displaced fracture. There is mild degenerative disease o f the spine. Limited views of the soft tissues in the upper abdomen are unremarkable. IMPRESSION: 1. No acute cardiopulmonary process or consolidation. 2. Moderate emphysema. 3. Mediastinal lymph nodes are upper limit of normal and nonspecific. All CT scans are performed using dose optimization techniques as appropriate to the performed exam an d include at least one of the following: Automated exposure control, adjustment of the mA and/or kV according t o size, and the use of iterative reconstruction technique.
[2021-08-13 09:06] LABS: ADENOVIRUS (PCR) NOT DETECTED (NOT DETECT)
[2021-08-13 09:07] LABS: HUMAN RHINOVIRUS/ENTEROV (PCR) DETECTED (NOT DETECT)
[2021-08-13 09:25] LABS: BILIRUBIN,URINE Negative (NEGATIVE); CLARITY,URINE Clear (CLEAR); COLOR,URINE Yellow (YELLOW); GLUCOSE, URINE (UA) Negative (NEGATIVE); KETONES,URINE Negative (NEGATIVE); LEUKOCYTE ESTERASE ,URINE Negative (NEGATIVE); NITRITE,URINE Negative (NEGATIVE); PROTEIN,URINE Negative (NEGATIVE); URINE, BLOOD Negative (NEGATIVE); UROBILINOGEN,URINE 0.2 (0.2)
[2021-08-13] MEDS ORDERED: ATROVENT HFA INHALER (PER PUFF-WITH SPACER) IH ONE (09:45)
--- NOTE | 2021-08-13 10:02 | ED.PDOC ---
General ED Provider: Dr. HERSON KAPLAN MD Chief Complaint: Chest Pain Stated Complaint: mild chest pain and increasing SOB and wheezing x worse today Time Seen by Provider: 08/13/21 07:55 Mode of Arrival: Walk-In Information Source: Patient Exam Limitations: No limitations Primary Care Provider: CARLTON LEBRON Nursing and Triage Documentation Reviewed and Agree: Yes Does patient meet sepsis criteria?: No If yes, has appropriate treatment been initiated?: No System Inflammatory Response Syndrome: Not Applicable Sepsis Protocol: For patient's 13 years and over: Temp is 96.8 and below OR 101 and greater Pulse >90 BPM Resp >20/minute Acutely Altered Mental Status Are patient's symptoms suggestive of a new infection, such as: -Pneumonia -Skin, Soft Tissue -Endocarditis -UTI -Bone, Joint Infection -Implantable Device -Acute Abdominal Infection -Wound Infection -Meningitis -Blood Stream Catheter Infection -Unknown Respiratory Complaint Exam Shortness of Air Complaint/Exam Onset/Duration: 1 day Symptoms Are: Still present Timing: Constant Initial Severity: Mild Current Severity: Moderate Character: Reports Dyspnea on exertion Aggravating: Reports Movement and Deep breaths Alleviating: Reports Bronchodilators and Oxygen Associated Signs and Symptoms: Reports Cough, Wheezing, Chest pain with cough and Chest pain; Denies Fever, Chills, Diaphoresis, Nasal congestion, Dizziness, Calf pain, Calf swelling, Edema, Rapid breathing, Labored breathing or Decreased intake History of Healthcare-Acquired Pneumonia: No Cardiac Risk Factors: Reports Smoking Home Oxygen Use: No Recent Stress Test: No Recent Echo/LV Function: No Respiratory Distress: Mild Stridor Present: No Subcutaneous Emphysema: No Accessory Muscle Use: No Unable to Speak Full Sentences: No Fatigue: No Farrah's Sign Present: No Grunting Respirations: No Kussmaul Respirations: No Differential Diagnoses: Asthma, CHF, Chest Wall Pain, COPD Exacerbation, SARS, Bronchitis and Bronchospasm Review of Systems Review Of Systems Constitutional: Reports No symptoms Eyes: Reports No symptoms Ears, Nose, Mouth, Throat: Reports No symptoms Respiratory: Reports Cough, Short of air and Wheezing Cardiac: Reports No symptoms GI: Reports No symptoms : Reports No symptoms Musculoskeletal: Reports No symptoms Skin: Reports No symptoms Neurological: Reports No symptoms Endocrine: Reports No symptoms Hematologic/Lymphatic: Reports No symptoms All Other Systems: Reviewed and Negative [facility] Medical History Basal cell carcinoma COPD (chronic obstructive pulmonary disease) History of fracture of right shoulder Hypertension Left breast lump Migraine Pneumonia Family History Mother COPD (chronic obstructive pulmonary disease) Social History Smoking and tobacco status: Former smoker Quit status: has quit before Second hand smoke exposure: Yes Smoking risk assessment performed: No Surgical History History of section Female Reproductive History Menstrual Age of Menarche: 47 Hx Hysterectomy: No Hx Tubal Ligation: Yes Physical Exam Physical Exam Appearance: Reports Ill-appearing and Well-nourished Ill-appearing: Mild Pain Distress: Mild Eyes: Reports KATHRIN, EOMI and Conjunctiva clear ENT: Reports Ears normal, Nose normal and Oropharynx normal Neck: Supple Respiratory: Reports Airway patent, Crackles, Rhonchi, Wheezes and Retractions Cardiovascular: Reports RRR, Pulses normal, No rub and No murmur GI/: Reports Soft, Nontender, No masses, Bowel sounds normal and No Organ omegaly Musculoskeletal: Reports Normal strength, ROM intact, No edema and No calf tenderness Skin: Reports Warm, Dry and Normal color Neurological: Reports Sensation intact, Motor intact, Reflexes intact, Cranial nerves intact, Alert and Oriented Psychiatric: Reports Affect appropriate and Mood appropriate Interpretation Radiology Interpretation Radiology Interpretation By: Radiologist Exam Interpreted: CT Scan Xray Comments: see report. Re-Evaluation Re-Evaluation Time of Re-Evaluation: 08:51 Status: Improved Vital Signs Stable: Yes Pain Level: 1 Appearance: NAD Lungs: Clear Skin: Warm and Dry Neuro: Alert and Oriented X3 CV: RRR Critical Care Note Critical Care Note Total Critical Care Time (mins): 0 Course Course Hematology/Chemistry: 08/16/21 05:10 08/16/21 05:10 Orders, Labs, Meds: Lab Review 08/13/21 08/13/21 08/13/21 08:00 08:00 08:00 WBC 8.58 RBC 4.66 Hgb 14.5 Hct 42.6 MCV 91.4 MCH 31.1 H MCHC 34.0 RDW Coeff of Rico 12.8 Plt Count 236 Immature Gran % (Auto) 0.3 Neut % (Auto) 79.2 H Lymph % (Auto) 9.9 L Hooker % (Auto) 5.2 Eos % (Auto) 5.1 Baso % (Auto) 0.3 Neut # (Auto) 6.8 Lymph # (Auto) 0.9 Hooker # (Auto) 0.5 Eos # (Auto) 0.4 Baso # (Auto) 0.0 Immature Gran # (Auto) 0.0 Puncture Site Base Excess O2 Saturation ABG pH ABG pCO2 ABG pO2 ABG HCO3 ABG Total CO2 Cordell Test Hemoglobin Oxyhemoglobin Carboxyhemoglobin Total Hemoglobin FiO2 % Sodium 138.5 Potassium 4.06 Chloride 100.9 Carbon Dioxide 32.2 H Anion Gap 9.46 BUN 8.2 Creatinine 0.61 Estimated GFR (MDRD) 103.00 BUN/Creatinine Ratio 13.44 Glucose 108.4 H Calcium 9.11 Total Bilirubin 0.67 AST 22.5 ALT 25.1 Alkaline Phosphatase 107.8 Troponin I < 0.012 Total Protein 7.30 Albumin 4.17 Globulin 3.13 Albumin/Globulin Ratio 1.33 Urine Color Urine Clarity Urine pH Ur Specific [place] Urine Protein Urine Glucose (UA) Urine Ketones Urine Blood Urine Nitrite Urine Bilirubin Urine Urobilinogen Ur Leukocyte Esterase Adenovirus (PCR) Not detected B. pertussis DNA (PCR) Not detected B.parapertussis DNA PCR Not detected C. pneumoniae DNA (PCR) Not detected Coronavirus OC43 (PCR) Not detected Coronavirus HKU1 (PCR) Not detected Coronavirus 229E (PCR) Not detected Coronavirus NL63 (PCR) Not detected Human Metapneumovir PCR Not detected Influenza Type A (PCR) Not detected Influenza B (RT-PCR) Not detected M. pneumoniae (PCR) Not detected Parainfluenza 1 (PCR) Not detected Parainfluenza 2 (PCR) Not detected Parainfluenza 3 (PCR) Not detected Parainfluenza 4 (PCR) Not detected RSV (PCR) Not detected Entero/Rhino (PCR) Detected H SARS-CoV-2 (PCR) Not detected 08/13/21 08/13/21 08:15 09:20 WBC RBC Hgb Hct MCV MCH MCHC RDW Coeff of [place] Plt Count Immature Gran % (Auto) Neut % (Auto) Lymph % (Auto) Hooker % (Auto) Eos % (Auto) Baso % (Auto) Neut # (Auto) Lymph # (Auto) Hooker # (Auto) Eos # (Auto) Baso # (Auto) Immature Gran # (Auto) Puncture Site Rr Base Excess 8.3 H O2 Saturation 93.7 L ABG pH 7.47 H ABG pCO2 44.0 ABG pO2 65.0 L ABG HCO3 32.0 H ABG Total CO2 33.4 H Cordell Test Pos Hemoglobin 1.7 H Oxyhemoglobin 89.2 L Carboxyhemoglobin 5.6 H Total Hemoglobin 14.5 FiO2 % 21.0 Sodium Potassium Chloride Carbon Dioxide Anion Gap BUN Creatinine Estimated GFR (MDRD) BUN/Creatinine Ratio Glucose Calcium Total Bilirubin AST ALT Alkaline Phosphatase Troponin I Total Protein Albumin Globulin Albumin/Globulin Ratio Urine Color Yellow Urine Clarity Clear Urine pH 7.0 Ur Specific [place] 1.010 Urine Protein Negative Urine Glucose (UA) Negative Urine Ketones Negative Urine Blood Negative Urine Nitrite Negative Urine Bilirubin Negative Urine Urobilinogen 0.2 Ur Leukocyte Esterase Negative Adenovirus (PCR) B. pertussis DNA (PCR) B.parapertussis DNA PCR C. pneumoniae DNA (PCR) Coronavirus OC43 (PCR) Coronavirus HKU1 (PCR) Coronavirus 229E (PCR) Coronavirus NL63 (PCR) Human Metapneumovir PCR Influenza Type A (PCR) Influenza B (RT-PCR) M. pneumoniae (PCR) Parainfluenza 1 (PCR) Parainfluenza 2 (PCR) Parainfluenza 3 (PCR) Parainfluenza 4 (PCR) RSV (PCR) Entero/Rhino (PCR) SARS-CoV-2 (PCR) Orders Category Date Time Status ADMIT PATIENT INPATIENT .TO [facility] (MONITORED BED) ADMISSION 08/13/21 10:04 Completed ABG DRAW REQUEST Stat CARDIO 08/13/21 08:03 Completed EKG-(ED ONLY) Stat CARDIO 08/13/21 08:00 Completed METERED DOSE INHALATION Routine CARDIO 08/13/21 08:04 Completed METERED DOSE INHALATION Routine CARDIO 08/13/21 09:45 Completed NEBULIZER TREATMENT Routine CARDIO 08/13/21 10:14 Completed OXYGEN Routine CARDIO 08/13/21 10:07 Completed ACTIVITY .Up ad [place] CARE 08/13/21 10:05 Completed Saline Lock Access ONCE CARE 08/13/21 10:07 Completed TELEMETRY MONITORING TELE CARE 08/13/21 10:05 Completed VITAL SIGNS Q8HR CARE 08/13/21 10:05 Completed REGULAR DIET DIETARY 08/13/21 Lunch Completed Saline Lock [ED IV/MEDIPORT/POWERPORT] .ONCE EMERGENCY 08/13/21 08:05 Completed ABG COOX Stat LAB 08/13/21 08:15 Completed CBC W/ AUTO DIFF Stat LAB 08/13/21 08:00 Completed COMPREHENSIVE METABOLIC PANEL Stat LAB 08/13/21 08:00 Completed RESPIRATORY PANEL 2.1 (PCR) Stat LAB 08/13/21 08:00 Completed TROPONIN I Stat LAB 08/13/21 08:00 Completed URINALYSIS C & S IF INDICATED Stat LAB 08/13/21 09:20 Completed 0.9 % Sodium Chloride [Saline Flush] MEDS 08/13/21 08:05 Discontinued 1 syr IVF PRN PRN Albuterol Inhaler(with Spacer) [Ventolin Hfa (Per Puff- MEDS 08/13/21 08:00 Discontinued with Spacer)] 2 puff IH ONCE ONE Albuterol Inhaler(with Spacer) [Ventolin Hfa (Per Puff- MEDS 08/13/21 09:45 Discontinued with Spacer)] 2 puff IH ONCE ONE Ceftriaxone/D5w 1 gm Premix [Rocephin 1 gm/50 ml D5w] MEDS 08/13/21 10:30 Discontinued 1 gm in 50 ml IV DAILY Enoxaparin Sodium [Lovenox] MEDS 08/13/21 11:30 Discontinued 40 mg SUBCUT DAILY Guaifenesin [Mucinex] MEDS 08/13/21 11:30 Discontinued 1,200 mg PO BID Guaifenesin/Dextromethorphan [Mucinex Dm ER 600-30 mg MEDS 08/13/21 08:06 Discontinued Tablet] 1 each PO ONCE ONE Ipratropium Inhaler(Spacer) [Atrovent Hfa Inhaler (Per MEDS 08/13/21 09:45 Discontinued Puff-with Spacer)] 2 puff IH ONCE ONE Ipratropium/Albuterol Neb [Duoneb] MEDS 08/13/21 14:00 Discontinued 3 ml NEB RTQ4H Ketorolac Tromethamine [Toradol] MEDS 08/13/21 08:09 Discontinued 60 mg IM ONCE ONE Methylprednisolone Sod Succ/Pf [Solu-Medrol 125 mg] MEDS 08/13/21 08:00 Discontinued 125 mg IVP ONCE ONE Methylprednisolone Sod Succ/Pf [Solu-Medrol 125 mg] MEDS 08/13/21 15:00 Discontinued 80 mg IVP Q8HR Sodium Chloride 0.9% [Sodium Chloride] 500 ml MEDS 08/13/21 08:05 Discontinued IV BOLUS Tiotropium Cullen [Spiriva] MEDS 08/13/21 08:05 Discontinued 1 cap IH ONCE ONE CT CHEST W/O CONTRAST Stat RADS 08/13/21 08:00 Completed Medications Discontinued Medications Generic Name Dose Route Start Last Admin Trade Name Freq PRN Reason Stop Dose Admin Acetaminophen 650 mg 08/14/21 04:20 08/15/21 01:49 Acetaminophen 325 Mg Tablet PO 650 mg Q4H PRN Administration Pain Albuterol Sulfate 2 puff 08/13/21 08:00 08/13/21 08:34 Albuterol Sulfate (Ventolin Hfa) 18 Gm 1 Puff With Spacer IH 08/13/21 08:01 2 puff ONCE ONE Administration Albuterol Sulfate 2 puff 08/13/21 09:45 08/13/21 10:02 Albuterol Sulfate (Ventolin Hfa) 18 Gm 1 Puff With Spacer IH 08/13/21 09:46 2 puff ONCE ONE Administration Albuterol/Ipratropium 3 ml 08/13/21 14:00 08/16/21 18:00 Ipratropium/Albuterol Vial.Neb NEB 3 ml RTQ4H MICHELLE Administration Cefdinir 300 mg 08/16/21 21:00 08/16/21 20:09 Cefdinir 300 Mg Capsule PO 08/19/21 20:59 300 mg Q12HR MICHELLE Administration Enoxaparin Sodium 40 mg 08/13/21 11:30 08/16/21 08:31 Enoxaparin Sodium 40 Mg/0.4 Ml Syr SUBCUT 40 mg DAILY MICHELLE Administration Guaifenesin 1,200 mg 08/13/21 11:30 08/16/21 20:09 Guaifenesin 600 Mg Tablet.Er PO 1,200 mg BID MICHELLE Administration Guaifenesin/Dextromethorphan 1 each 08/13/21 08:06 08/13/21 08:34 Guaifenesin/Dextromethorphan 1 Each Tab.Er.12h PO 08/13/21 08:07 1 each ONCE ONE Administration Sodium Chloride 500 mls @ 500 mls/hr 08/13/21 08:05 08/13/21 08:34 Sodium Chloride IV 08/13/21 09:04 500 mls/hr BOLUS STA Administration CEFTRIAXONE/D5W 1 GM PREMIX 1 gm in 50 mls @ 75 mls/hr 08/13/21 10:30 08/16/21 08:30 Rocephin 1 Gm/50 Ml D5w IV 08/16/21 10:29 75 mls/hr DAILY MICHELLE Administration Ipratropium Cullen 2 puff 08/13/21 09:45 08/13/21 10:04 Ipratropium Cullen 12.9 Gm Hfa Inhaler Per Puff With Spacer IH 08/13/21 09:46 2 puff ONCE ONE Administration Ketorolac Tromethamine 60 mg 08/13/21 08:09 08/13/21 08:36 Ketorolac Tromethamine 60 Mg/2 Ml Vial IM 08/13/21 08:10 60 mg ONCE ONE Administration Lorazepam 0.5 mg 08/14/21 16:58 08/15/21 20:49 Lorazepam 0.5 Mg Tablet PO 0.5 mg Q4H PRN Administration Anxiety Methylprednisolone Sodium Succinate 125 mg 08/13/21 08:00 08/13/21 08:34 Methylprednisolone Sod Succ/Pf 125 Mg/2 Ml Vial IVP 08/13/21 08:01 125 mg ONCE ONE Administration Methylprednisolone Sodium Succinate 80 mg 08/13/21 15:00 08/14/21 04:34 Methylprednisolone Sod Succ/Pf 125 Mg/2 Ml Vial IVP 80 mg Q8HR MICHELLE Administration Methylprednisolone Sodium Succinate 60 mg 08/14/21 13:00 08/15/21 21:08 Methylprednisolone Sod Succ/Pf 125 Mg/2 Ml Vial IVP 60 mg Q8HR MICHELLE Administration Methylprednisolone Sodium Succinate 40 mg 08/15/21 21:00 08/16/21 12:36 Methylprednisolone Sod Succ/Pf 40 Mg/Ml Vial IVP 40 mg Q8HR IMCHELLE Administration Ondansetron HCl 4 mg 08/15/21 02:32 08/15/21 02:40 Ondansetron Hcl 4 Mg Tablet PO 08/15/21 02:33 4 mg ONCE ONE Administration Prednisone 40 mg 08/17/21 08:30 Prednisone 20 Mg Tablet PO DAILYWM MICHELLE Sodium Chloride 1 syr 08/13/21 08:05 08/14/21 04:35 0.9% Sodium Chloride 10 Ml Disp.Syrin IVF 1 syr PRN PRN Administration To flush IV Sodium Chloride 1 syr 08/15/21 06:00 08/16/21 12:36 0.9% Sodium Chloride 10 Ml Disp.Syrin IVF 1 syr Q8HR MICHELLE Administration Tiotropium Cullen 1 cap 08/13/21 08:05 08/13/21 08:36 Tiotropium Cullen 18 Mcg Cap.W.Dev IH 08/13/21 08:06 Not Given ONCE ONE Vital Signs: Temp Pulse Resp BP Pulse Ox 08/13/21 07:53 97.2 F L 108 H 24 169/107 H 95 Discharge Plan Discharge Patient Disposition: ADMITTED INPATIENT Discharge Problem: COPD exacerbation, Chest pain ED Provider: HERSON KAPLAN Condition: Serious Physician Progress Note: []pt chest pain was improved but SOB remained significant. For admission.
[2021-08-13] MEDS: ROCEPHIN 1 GM/50 ML D5W 1 GM/50 ML BAG IV SCH (10:20)
[2021-08-13] MEDS: MUCINEX PO SCH ×2 (10:36→21:28)
[2021-08-13 10:54] VITALS: BMI 32.8
[2021-08-13] MEDS: LOVENOX SUBCUT SCH (11:06)
[2021-08-13] MEDS: DUONEB NEB SCH ×3 (13:53→21:12)
[2021-08-13] MEDS: SOLU-MEDROL 125 MG IVP SCH ×2 (15:07→21:26)
[2021-08-14] MEDS: DUONEB NEB SCH ×6 (01:20→22:00)
[2021-08-14] MEDS: SOLU-MEDROL 125 MG IVP SCH ×3 (04:34→21:17)
[2021-08-14] MEDS: TYLENOL PO PRN ×2 (04:35→14:32)
[2021-08-14 07:07] LABS: BASOPHILS % (AUTO) 0.1 % (0.0-3.0); HEMATOCRIT 40.1 % (37.0-47.0); HEMOGLOBIN 13.4 g/dl (12.0-16.0); IMMATURE GRANULOCYTE % (AUTO) 0.3 % (0.0-5.0); LYMPHOCYTES # (AUTO) 0.4 K/uL (0.60-3.4); LYMPHOCYTES % (AUTO) 4.9 (10.0-50.0); MEAN CORPUSCULAR HGB CONC 33.4 (31.8-35.4); MEAN CORPUSCULAR VOLUME 92.8 fl (81.0-99.0); MONOCYTES # (AUTO) 0.3 K/uL (0.4-2.0); MONOCYTES % (AUTO) 3.3 (0-10); NEUTROPHILS # (AUTO) 6.9 K/ul (2.0-6.9); NEUTROPHILS % (AUTO) 91.4 % (42.2-75.2); PLATELET COUNT 206 10^3/uL (140-440); RDW COEFFICIENT OF VARIATION 12.6 % (11.6-14.8); RED BLOOD COUNT 4.32 10^6/ul (4.20-5.40); WHITE BLOOD COUNT 7.56 K/ul (4.6-10.2)
[2021-08-14 07:20] LABS: ALBUMIN 3.91 g/dL (3.5-5.0); ALKALINE PHOSPHATASE 123.7 U/L (38-126); ASPARTATE AMINO TRANSFERASE 22.2 U/L (14-36); BILIRUBIN,TOTAL 0.22 mg/dL (0.2-1.3); BLOOD UREA NITROGEN 13.4 mg/dL (7-17); CALCIUM 9.24 mg/dL (8.4-10.2); CARBON DIOXIDE 30.3 mmol/L (22-30.0); CHLORIDE 101.6 mmol/L (98-107); CREATININE 0.56 mg/dL (0.60-1.30); GLUCOSE 215.7 mg/dL (74-106); POTASSIUM 4.07 mmol/L (3.5-5.1); SODIUM 137.1 mmol/L (134.5-145); TOTAL PROTEIN 6.85 g/dL (6.3-8.2)
[2021-08-14] MEDS: MUCINEX PO SCH ×2 (09:17→21:17)
[2021-08-14] MEDS: LOVENOX SUBCUT SCH (09:17)
[2021-08-14] MEDS: ROCEPHIN 1 GM/50 ML D5W 1 GM/50 ML BAG IV SCH (10:26)
[2021-08-14] MEDS ORDERED: ATIVAN ONE (17:00)
[2021-08-14] MEDS: ATIVAN PO PRN ×2 (17:02→21:18)
[2021-08-15] MEDS: TYLENOL PO PRN (01:49)
[2021-08-15] MEDS: DUONEB NEB SCH ×6 (02:00→22:50)
[2021-08-15] MEDS ORDERED: ZOFRAN TAB PO ONE (02:32)
[2021-08-15] MEDS: SOLU-MEDROL 125 MG IVP SCH ×3 (05:48→21:08)
[2021-08-15] MEDS: ROCEPHIN 1 GM/50 ML D5W 1 GM/50 ML BAG IV SCH (08:30)
[2021-08-15] MEDS: LOVENOX SUBCUT SCH (08:30)
[2021-08-15] MEDS: MUCINEX PO SCH ×2 (08:30→20:49)
[2021-08-15] MEDS: ATIVAN PO PRN (20:49)
[2021-08-15] MEDS: SOLU-MEDROL 40 MG IVP SCH (21:52)
[2021-08-16] MEDS: DUONEB NEB SCH ×5 (04:50→18:00)
[2021-08-16] MEDS: SOLU-MEDROL 40 MG IVP SCH ×2 (05:09→12:36)
[2021-08-16 05:32] LABS: HEMATOCRIT 39.1 % (37.0-47.0); HEMOGLOBIN 12.6 g/dl (12.0-16.0); MEAN CORPUSCULAR HEMOGLOBIN 30.7 pg (27.0-31.0); MEAN CORPUSCULAR HGB CONC 32.2 (31.8-35.4); MEAN CORPUSCULAR VOLUME 95.1 fl (81.0-99.0); PLATELET COUNT 211 10^3/uL (140-440); RED BLOOD COUNT 4.11 10^6/ul (4.20-5.40); WHITE BLOOD COUNT 8.43 K/ul (4.6-10.2)
[2021-08-16 05:36] LABS: ANISOCYTOSIS NOT PRESENT (NOT PRESENT)
[2021-08-16 05:43] LABS: BLOOD UREA NITROGEN 13.7 mg/dL (7-17); CALCIUM 8.84 mg/dL (8.4-10.2); CARBON DIOXIDE 31.5 mmol/L (22-30.0); CHLORIDE 97.7 mmol/L (98-107); CREATININE 0.56 mg/dL (0.60-1.30); GLUCOSE 263.2 mg/dL (74-106); POTASSIUM 4.44 mmol/L (3.5-5.1); SODIUM 134.3 mmol/L (134.5-145)
[2021-08-16] MEDS: ROCEPHIN 1 GM/50 ML D5W 1 GM/50 ML BAG IV SCH (08:30)
[2021-08-16] MEDS: MUCINEX PO SCH ×2 (08:30→20:09)
[2021-08-16] MEDS: LOVENOX SUBCUT SCH (08:31)
[2021-08-16 14:30] VITALS: BP 163/90; TEMP 97.7
[2021-08-16] MEDS ORDERED: OMNICEF PO SCH (21:00)
[2021-08-17] MEDS ORDERED: PREDNISONE PO SCH (08:30)
--- NOTE | 2021-09-25 11:21 | HP ---
CHIEF COMPLAINT: DISCUSSION: 50 year old lad with a history of COPD followed by pulmonary service in [place] who presented to the emergency department with chest discomfort, increasing shortness, cough and wheezing. She was evaluated in the emergency department by Dr. Carter who treated with steroids, updrafts and antibiotics. Despite this treatment she continued to have significant dyspnea. He did not feel that she could be a discharge and felt that she had an exacerbation of COPD therefore was admitted to my services with steroids, bronchodilators and antibiotics. PAST MEDICAL HISTORY: MEDICATIONS: Albuterol NEBS Breztri inhalers Mucinex Levaquin ALLERGIES: Chantix Codeine Vioxx Nicotine patch Rofecoxib PAST MEDICAL HISTORY: History of COPD History of basal cell carcinoma removed from the upper lip History of fracture right shoulder Remote history of hypertension History of right breast lump removed History of migraine headaches PAST SURGICAL HISTORY: History of SOCIAL HISTORY: Previous smoker. Denies any alcohol or illicit drug use. FAMILY HISTORY: COPD in her mother REVIEW OF SYSTEMS: No headaches, visual changes, tinnitus, chest pain other than with cough, hemoptysis, abdominal pain, blood in the stool, urinary symptoms or seizures. Shortness of breath. PHYSICAL EXAMINATION: V/S: Temperature 97.2, pulse 108, respiratory rate 24, blood pressure 169/107 HEENT: Pupils are round. NECK: Supple. CHEST: Bilateral respiratory wheezes and rhonchi. CARDIOVASCULAR: Regular rate and rhythm. ABDOMEN: Soft, nontender. EXTREMITIES: Distal extremities without cyanosis or edema. LABS: Chest x-ray and labs were reviewed ASSESSMENT: 1. COPD exacerbation PLAN: 1. The patient is admitted to my services 2. IV steroids 3. Bronchodilators 4. Antibiotics 5. Please see orders. MTDD
--- NOTE | 2021-09-25 12:54 | DS ---
PRINCIPAL DIAGNOSIS: 1. Acute respiratory failure 2. COPD exacerbation CLINICAL COURSE: This patient presented to the emergency department with significant wheezing and shortness of breath and cough and found to have a COPD exacerbation. She was admitted to my services. She was given Bronchodilators, antibiotics and steroids. She has improvement in symptoms however she continued to have persistent hypoxia. We had arrangements and she qualified for home oxygen. We arranged for the patient to be discharged with home oxygen. Otherwise she was stable and she felt she was stable for discharge. Therefore she will be discharged with steroids, antibiotics and bronchodilators. She will followup in the office in one week. I talked to her again about keeping her appointment with pulmonary and she voiced understanding. SHANNA
--- NOTE | 2021-09-25 13:03 | PN ---
DATE OF VISIT: 08/14/2021 SUBJECTIVE: Mrs. Carlton continues with shortness of breath with any exertions. She had a cough productive of yellow to mucoid sputum. Denies any fever. There is no nursing staff concerns. OBJECTIVE: Temperature 98.6, pulse 80, respiratory rate 18, blood pressure 120/80. REVIEW OF SYSTEMS: Denies headaches, visual changes, tinnitus or chest pain. Positive for shortness of breath with exertion. No hemoptysis, abdominal pain, blood in the stool, urinary symptoms or seizures. PHYSICAL EXAMINATION: HEENT: Pupils are round. NECK: Supple. CHEST: Scatter rhonchi and wheezes. CARDIOVASCULAR: Regular rate and rhythm. ABDOMEN: Soft, nontender. EXTREMITIES: Distal extremities without cyanosis or edema. IMPRESSION: 1. COPD exacerbation PLAN: 1. Continue steroids, antibiotics, bronchodilators. 2. Increase activity 3. Watch oximetry. 4. Please see orders. MTDD
--- NOTE | 2021-09-25 13:06 | PN ---
DATE OF VISIT: 08/15/2021 SUBJECTIVE: Ms. Carlton has no nursing staff concerns today. Her shortness of breath has improved. Cough is less productive. Denies any fever or chills. OBJECTIVE: Temperature 99.9, pulse 80, respiratory rate 18, blood pressure 130/90. REVIEW OF SYSTEMS: Denies headaches, visual changes, tinnitus or chest pain. Positive for shortness of breath with exertion. No hemoptysis, abdominal pain, blood in the stool, urinary symptoms or seizures. PHYSICAL EXAMINATION: HEENT: Pupils are round. NECK: Supple. CHEST: Scattered rhonchi with expiratory wheezes improving. CARDIOVASCULAR: Regular rate and rhythm. ABDOMEN: Soft, nontender. EXTREMITIES: Distal extremities without cyanosis or edema. IMPRESSION: 1. COPD exacerbation PLAN: 1. Continue steroids, bronchodilators and antibiotics 2. Watch oximetry 3. I think she is going to qualify for home oxygen even if short term. 4. Please see orders. MTDD
== END 2021-08-16 20:18 | disposition home or self-care (01) | DRG 313 ==
LOC: ED 07:52 → MEDSURG A 10:13
PROVIDERS: ADMIT Family Medicine; ATTEND Family Medicine